=== PATIENT | female | born 1950 | race Caucasian/White ===

== ENCOUNTER 2016-11-29 02:48 | Emergency (ER) | payer MEDICARE, BC ==
[2016-11-29 03:07] VITALS: BP 148/82
--- NOTE | 2016-11-29 03:41 | EDM.PDOC ---
ED HPI GENERAL MEDICAL PROBLEM - General Chief Complaint: Lower Extremity Injury/Pain Stated Complaint: FALL LEFT HIP PAIN AND RIGHT KNEE Time Seen by Provider: 11/29/16 03:33 Source of Information: Reports: Patient History Limitations: Reports: No Limitations - History of Present Illness INITIAL COMMENTS - FREE TEXT/NARRATIVE: This patient is here in the hospital with her who is a hospitalist patient. This lady fell in the hospital lobby 2 days ago. She has a left hip it's been replaced x2. Since falling she does experience some minor pain in the abductor muscles of the left eye but says her hip really doesn't hurt. She' s had some minor discomfort in the right knee. She's been able to walk without difficulties but someone in the hospital told her she probably should get it checked out since it happened on hospital property. Normally she walks with a cane which she has with her today Right Knee Pain Score (Numeric/FACES): 4 - Related Data Allergies Allergy/AdvReac Type Severity Reaction Status Date / Time paroxetine HCl [From Paxil] Allergy Unknown Other Verified 11/29/16 03:04 sertraline HCl [From Zoloft] Allergy Unknown Hives Verified 11/29/16 03:04 adhesive Allergy Rash Verified 11/29/16 03:04 hydromorphone HCl Allergy Itching Verified 11/29/16 03:04 [From Dilaudid] nickel Allergy Rash Verified 11/29/16 03:04 polyethylene glycol 400 Allergy Redness Verified 11/29/16 03:04 [From Systane] propylene glycol Allergy Redness Verified 11/29/16 03:04 [From Systane] codeine AdvReac Unknown Hallucinati Verified 11/29/16 03:04 ons Home Meds: Home Meds Cetirizine [ZyrTEC] 10 mg PO DAILY 03/25/15 [History] Cholecalciferol (Vitamin D3) [Vitamin D3] 2,000 units PO DAILY 03/25/15 [History ] Gabapentin [Neurontin] 600 mg PO BEDTIME 03/25/15 [History] Ibuprofen 400 - 600 mg PO ASDIRECTED PRN 03/25/15 [History] Cyclobenzaprine [Flexeril] 10 mg PO BEDTIME 11/29/16 [History] DULoxetine [Cymbalta] 1 tab PO DAILY 11/29/16 [History] Ergocalciferol (Vitamin D2) [Vitamin D2] 1 tab PO ASDIRECTED 11/29/16 [History] Montelukast [Singulair] 10 mg PO DAILY 11/29/16 [History] oxyCODONE [oxyCODONE] 10 mg PO ASDIRECTED 11/29/16 [History] Past Medical History HEENT History: Reports: Impaired Vision Cardiovascular History: Reports: Heart Murmur [employer] History: Reports: , Other (See Below) Other OB/BYN History: d&cs Hematologic History: Reports: Anemia - Infectious Disease History Infectious Disease History: Reports: Chicken Pox - Past Surgical History Female Surgical History: Reports: D&C, Salpingo-Oophorectomy Musculoskeletal Surgical History: Reports: Hip Replacement, Other (See Below) Other Musculoskeletal Surgeries/Procedures:: toes, thumb surgery Social & Family History - Tobacco Use Smoking Status *Q: Never Smoker Second Hand Smoke Exposure: No - Caffeine Use Caffeine Use: Reports: Coffee - Alcohol Use Days Per Week of Alcohol Use: 5 Number of Drinks Per Day: 2 Total Drinks Per Week: 10 - Recreational Drug Use Recreational Drug Use: No Review of Systems - Review of Systems Review Of Systems: ROS reveals no pertinent complaints other than HPI. Trauma Exam - Physical Exam Exam: See Below Exam Limited By: No Limitations General Appearance: Reports: Alert, No Apparent Distress, Obese Extremities: Other (The right knee has full range of motion and there is no tenderness no effusion swelling erythema or increased heat. Not able to see any evidence of an acute injury. The patient initially is sitting on the stretcher but when I asked her to she gets up without difficulty and is able to take a few steps across the ER using her cane. She bears weight and moves the left hip without any difficulty.) Course - Vital Signs Last Recorded V/S: Last Vital Signs Temp 36.6 C 11/29/16 02:57 Pulse 107 H 11/29/16 02:57 Resp 16 11/29/16 02:57 BP 148/82 H 11/29/16 02:57 Pulse Ox 96 11/29/16 02:57 - Re-Assessments/Exams Free Text/Narrative Re-Assessment/Exam: 11/29/16 06:53 Based on my exam and observation no x-rays are needed on this lady. She is satisfied with this and agrees that she just wanted to get it checked out Departure - Departure Time of Disposition: 03:33 Disposition: Home, Self-Care 01 Condition: good Clinical Impression: Fall - Discharge Information Instructions: Muscle Pain, Adult Referrals: Gabbi Duarte CNM [Primary Care Provider] - Forms: ED Department Discharge Additional Instructions: There doesn't appear to be any injury to the left hip so you may continue to walk on it as before. The right knee may have some chronic arthritis but doesn't appear to have a new injury so xrays are not needed. You may also continue walking on it. Contact your doctor for any more problems or return to the ER at any time if needed.
== END 2016-11-29 03:51 | disposition home or self-care (01) ==
LOC: JP.ED 02:48
DX: M25.561 Pain in right knee (principal); Z90.721 Acquired absence of ovaries, unilateral; Z96.649 Presence of unspecified artificial hip joint; Z98.890 Other specified postprocedural states; Z79.899 Other long term (current) drug therapy; Z88.5 Allergy status to narcotic agent; Z88.8 Allergy status to other drugs, medicaments and biological substances; W19.XXXA Unspecified fall, initial encounter
CPT/HCPCS: 99282; 99284

== ENCOUNTER 2019-09-20 08:37 | Inpatient (IN) | payer MEDICARE, BC ==
[~2019-09-20 08:37] MED LIST: Lactated Ringers 1,000 ML IV SCH; Midazolam 1 MG/ML 2 ML SDV ONE; Nozin Nasal Sanitizer NASBOTH SCH; Propofol 200 MG/20 ML SDV ONE; fentaNYL 100 MCG/2 ML SDV ONE
[2019-09-20] MEDS ORDERED: ceFAZolin 2 GM in Premix Bag 1 BAG IV ONE (09:30)
[2019-09-20] MEDS ORDERED: Povidone-Iodine 10% Soln 118.25 ML Bottle ONE (09:34)
[2019-09-20] MEDS: TRANEXAMIC ACID IV ONE ×2 (10:21→15:15)
[2019-09-20] MEDS: SODIUM CHLORIDE 0.9% IV ONE ×2 (10:21→15:15)
[2019-09-20] MEDS ORDERED: Midazolam 1 MG/ML 2 ML SDV ONE ×3 (11:38→13:01)
[2019-09-20] MEDS ORDERED: Propofol 200 MG/20 ML SDV ONE ×3 (11:39→13:08)
[2019-09-20] MEDS ORDERED: Bupivacaine 0.5% 50 ML MDV ONE (11:45)
[2019-09-20] MEDS ORDERED: SODIUM CHLORIDE 0.9% IV PRN (11:45)
[2019-09-20] MEDS ORDERED: TRANEXAMIC ACID IV PRN (11:45)
[2019-09-20] MEDS ORDERED: fentaNYL 100 MCG/2 ML SDV ONE ×2 (12:29→13:01)
[2019-09-20] MEDS ORDERED: Lactated Ringers 1,000 ML ONE (13:14)
[2019-09-20] MEDS ORDERED: Ondansetron 4 MG Tab.DIS PO PRN (13:38)
[2019-09-20] MEDS ORDERED: Acetaminophen/HYDROcodone 325-5 MG Tab PO PRN (13:38)
[2019-09-20] MEDS ORDERED: Magnesium Hydroxide 400 MG/5 ML Susp 30 ML Cup PO PRN (13:38)
[2019-09-20] MEDS ORDERED: Morphine 2 MG/ML Syringe IVPUSH PRN ×2 (13:38→18:18)
[2019-09-20] MEDS ORDERED: Acetaminophen 325 MG Tab PO PRN (13:38)
[2019-09-20] MEDS ORDERED: CARBOXYMETHYLCELLULOSE SODIUM EYEBOTH PRN (13:46)
[2019-09-20] MEDS ORDERED: Non-Formulary Medication 1 Each (Hydroxyzine Pamoate [Hydroxyzine Pamoate] 25 MG) PO PRN (13:46)
--- NOTE | 2019-09-20 14:20 | CR ---
Pelvis 1V or 2V CLINICAL HISTORY: Revision left hip prosthesis FINDINGS: Patient has a total left hip arthroplasty. There has been revision of the acetabular component. The the femoral component appears similar. Portable study is technically limited. Clinical correlation necessary IMPRESSION: Revision left hip arthroplasty. Components appear well seated
[2019-09-20] MEDS ORDERED: Hypromellose 0.3% Ophth Soln 15 ML Bottle EYEBOTH PRN (14:25)
[2019-09-20] MEDS ORDERED: hydrOXYzine HCl 25 MG Tab PO PRN (14:26)
[2019-09-20] MEDS: Acetaminophen/oxyCODONE 325-5 MG Tab PO PRN ×2 (16:59→20:59)
[2019-09-20] MEDS: ALPRAZolam 0.25 MG Tab PO PRN (17:27)
[2019-09-20] MEDS: ceFAZolin 1 GM in Premix Bag 1 BAG IV SCH (17:28)
[2019-09-20] MEDS: Sodium Chloride 0.9% 1,000 ML IV SCH (19:18)
[2019-09-20] MEDS: Ketorolac 30 MG/ML SDV IVPUSH SCH (20:09)
[2019-09-20] MEDS: Nozin Nasal Sanitizer NASBOTH SCH (20:12)
[2019-09-20] MEDS: Gabapentin 300 MG Cap PO SCH (20:15)
[2019-09-20] MEDS: Docusate Sodium 100 MG Cap PO SCH (20:15)
[2019-09-20] MEDS: Montelukast 10 MG Tab PO SCH (20:15)
[2019-09-20] MEDS: traZODone 50 MG Tab PO SCH (20:15)
[2019-09-20] MEDS ORDERED: Non-Formulary Medication 1 Each (Trazodone [Trazodone] 50 MG) PO SCH (21:00)
[2019-09-21] MEDS: Ketorolac 30 MG/ML SDV IVPUSH SCH ×3 (01:48→14:07)
[2019-09-21] MEDS: Acetaminophen/oxyCODONE 325-5 MG Tab PO PRN ×5 (01:49→20:40)
[2019-09-21] MEDS: ceFAZolin 1 GM in Premix Bag 1 BAG IV SCH ×2 (01:57→10:51)
[2019-09-21] MEDS: Sodium Chloride 0.9% 1,000 ML IV SCH (03:23)
[2019-09-21] MEDS: Gabapentin 100 MG Cap PO SCH ×2 (08:00→14:06)
[2019-09-21] MEDS: DULoxetine 20 MG Cap PO SCH (08:01)
[2019-09-21] MEDS: Docusate Sodium 100 MG Cap PO SCH ×2 (08:01→20:42)
[2019-09-21] MEDS: Nozin Nasal Sanitizer NASBOTH SCH ×2 (08:01→20:42)
[2019-09-21] MEDS: Enoxaparin 30 MG/0.3 ML Syringe SUBCUT SCH (08:02)
[2019-09-21] MEDS: Fluticasone Propionate Nasal Spray 16 GM Bottle NASBOTH SCH (08:02)
[2019-09-21] MEDS: ALPRAZolam 0.25 MG Tab PO PRN ×2 (08:15→21:04)
[2019-09-21] MEDS ORDERED: Montelukast 10 MG Tab PO SCH (09:00)
[2019-09-21] MEDS: Gabapentin 300 MG Cap PO SCH (20:42)
[2019-09-21] MEDS: Montelukast 10 MG Tab PO SCH (20:42)
[2019-09-21] MEDS: traZODone 50 MG Tab PO SCH (20:43)
[2019-09-22] MEDS: Acetaminophen/oxyCODONE 325-5 MG Tab PO PRN ×3 (00:46→14:15)
[2019-09-22] MEDS: Gabapentin 100 MG Cap PO SCH ×2 (08:13→13:54)
[2019-09-22] MEDS: Enoxaparin 30 MG/0.3 ML Syringe SUBCUT SCH (08:17)
[2019-09-22] MEDS: Nozin Nasal Sanitizer NASBOTH SCH (08:17)
[2019-09-22] MEDS: DULoxetine 20 MG Cap PO SCH (08:17)
[2019-09-22] MEDS: Fluticasone Propionate Nasal Spray 16 GM Bottle NASBOTH SCH (08:17)
[2019-09-22] MEDS: Docusate Sodium 100 MG Cap PO SCH (08:17)
[2019-09-22] MEDS: ALPRAZolam 0.25 MG Tab PO PRN (08:25)
--- NOTE | 2019-09-22 12:24 | PCM.SURGPN ---
- General Info Date of Service: 09/21/19 Date of Surgery/Procedure: 09/20/19 POD#: 1 Functional Status: Reports: Tolerating Diet, Ambulating - Review of Systems General: Reports: No Symptoms HEENT: Reports: No Symptoms Pulmonary: Reports: No Symptoms Cardiovascular: Reports: No Symptoms Gastrointestinal: Reports: No Symptoms Musculoskeletal: Reports: Leg Pain Skin: Reports: No Symptoms Neurological: Reports: No Symptoms Psychiatric: Reports: No Symptoms - Patient Data Vitals - Most Recent: Last Vital Signs Temp 36.5 C 09/22/19 08:00 Pulse 72 09/22/19 08:00 Resp 16 09/22/19 08:00 BP 116/60 09/22/19 08:00 Pulse Ox 97 09/22/19 08:00 Weight - Most Recent: 90.718 kg I&O - Last 24 Hours: Intake & Output 09/21/19 09/22/19 09/22/19 22:59 06:59 14:59 Intake Total 1100 500 Output Total 950 500 Balance 150 0 Matt Results Last 24 Hrs: Microbiology 09/20/19 12:16 Gram Stain - Final Hip, Left Wound Culture - Preliminary NO GROWTH AFTER 1 DAY Anaerobic Culture - Preliminary NO GROWTH AFTER 1 DAY Med Orders - Current: Current Medications Acetaminophen (Tylenol) 650 mg PO Q4H PRN PRN Reason: Pain/Fever Hydrocodone Bitart/Acetaminophen ([place] 325-5 Mg) 1 tab PO Q3H PRN PRN Reason: Pain Alprazolam (Xanax) 0.25 mg PO BID PRN PRN Reason: Anxiety Last Admin: 09/22/19 08:25 Dose: 0.25 mg Artificial Tears (Genteal Mild To Moderate Ophth Soln) 1 - 2 ml EYEBOTH QID PRN PRN Reason: DRY EYES Bandage/Support Products ( Nasal Museum Exhibit Designer) 1 applic NASBOTH BID [facility] Stop: 09/27/19 21:01 Last Admin: 09/22/19 08:17 Dose: 1 applic Docusate Sodium (Colace) 100 mg PO BID [facility] Last Admin: 09/22/19 08:17 Dose: 100 mg Duloxetine HCl (Cymbalta) 40 mg PO DAILY [facility] Last Admin: 09/22/19 08:17 Dose: 40 mg Enoxaparin Sodium (Lovenox) 30 mg SUBCUT DAILY [facility] Last Admin: 09/22/19 08:17 Dose: 30 mg Fluticasone Propionate (Flonase) 0 gm NASBOTH DAILY [facility] Last Admin: 09/22/19 08:17 Dose: 1 applic Gabapentin (Neurontin) 100 mg PO BID@0800,1400 [facility] Last Admin: 09/22/19 08:13 Dose: 100 mg Gabapentin (Neurontin) 600 mg PO BEDTIME [facility] Last Admin: 09/21/19 20:42 Dose: 600 mg Hydroxyzine HCl (Atarax) 25 mg PO Q3H PRN PRN Reason: ITCHING Magnesium Hydroxide (Milk Of Magnesia) 30 ml PO Q6H PRN PRN Reason: Stool Softener Montelukast Sodium (Singulair) 10 mg PO BEDTIME [facility] Last Admin: 09/21/19 20:42 Dose: 10 mg Morphine Sulfate (Morphine) 2 mg IVPUSH Q1H PRN PRN Reason: Breakthrough Pain Last Admin: 09/20/19 18:55 Dose: 2 mg Ondansetron HCl (Zofran Odt) 4 mg PO Q6H PRN PRN Reason: Nausea/Vomiting Oxycodone/Acetaminophen (Percocet 325-5 Mg) 0 tab PO Q4H PRN PRN Reason: Pain (severe 7-10) Last Admin: 09/22/19 08:11 Dose: 2 tab Trazodone HCl (Trazodone) 50 mg PO BEDTIME [facility] Last Admin: 09/21/19 20:43 Dose: 50 mg Discontinued Medications Bandage/Support Products ( Nasal Museum Exhibit Designer) 1 applic NASBOTH BID [facility] Last Admin: 09/20/19 09:44 Dose: 1 applic Bupivacaine HCl (Marcaine 0.5%) Confirm Administered Dose 50 ml .ROUTE .STK-MED ONE Stop: 09/20/19 11:46 Fentanyl (Sublimaze) Confirm Administered Dose 100 mcg .ROUTE .STK-MED ONE Stop: 09/20/19 08:02 Fentanyl (Sublimaze) Confirm Administered Dose 100 mcg .ROUTE .STK-MED ONE Stop: 09/20/19 12:30 Fentanyl (Sublimaze) Confirm Administered Dose 100 mcg .ROUTE .STK-MED ONE Stop: 09/20/19 13:02 Cefazolin Sodium/Dextrose 2 gm (/ Premix) 50 mls @ 100 mls/hr IV ONETIME ONE Stop: 09/20/19 09:59 Last Admin: 09/20/19 10:20 Dose: 100 mls/hr Lactated Ringer's (Ringers, Lactated) 1,000 mls @ 75 mls/hr IV ASDIRECTED [facility] Last Admin: 09/20/19 09:42 Dose: 75 mls/hr Tranexamic Acid 910 mg/ Sodium (Chloride) 59.1 mls @ 236.4 mls/hr IV ONETIME ONE Stop: 09/20/19 09:59 Last Admin: 09/20/19 15:15 Dose: Not Given Tranexamic Acid 910 mg/ Sodium (Chloride) 59.1 mls @ 236.4 mls/hr IV ASDIRECTED PRN PRN Reason: 2ND DOSE PER PROVIDER REQUEST Lactated Ringer's (Ringers, Lactated) Confirm Administered Dose 1,000 mls @ as directed .ROUTE .STK-MED ONE Stop: 09/20/19 13:15 Cefazolin Sodium/Dextrose 1 gm (/ Premix) 50 mls @ 100 mls/hr IV Q8H [facility] Stop: 09/21/19 10:29 Last Admin: 09/21/19 10:51 Dose: 100 mls/hr Sodium Chloride (Normal Saline) 1,000 mls @ 125 mls/hr IV ASDIRECTED [facility] Last Admin: 09/21/19 03:23 Dose: 125 mls/hr Ketorolac Tromethamine (Toradol) 15 mg IVPUSH Q6H [facility] Stop: 09/21/19 14:01 Last Admin: 09/21/19 14:07 Dose: 15 mg Midazolam HCl (Versed 1 Mg/Ml) Confirm Administered Dose 2 mg .ROUTE .STK-MED ONE Stop: 09/20/19 08:02 Midazolam HCl (Versed 1 Mg/Ml) Confirm Administered Dose 2 mg .ROUTE .STK-MED ONE Stop: 09/20/19 11:39 Midazolam HCl (Versed 1 Mg/Ml) Confirm Administered Dose 2 mg .ROUTE .STK-MED ONE Stop: 09/20/19 11:46 Midazolam HCl (Versed 1 Mg/Ml) Confirm Administered Dose 2 mg .ROUTE .STK-MED ONE Stop: 09/20/19 13:02 Morphine Sulfate (Morphine) 1 mg IVPUSH Q1H PRN PRN Reason: Breakthrough Pain Last Admin: 09/20/19 16:23 Dose: 1 mg Povidone Iodine (Betadine 10% Soln) Confirm Administered Dose 1 ml .ROUTE .STK- MED ONE Stop: 09/20/19 09:35 Last Admin: 09/20/19 11:57 Dose: 40 ml Propofol (Diprivan 20 Ml) Confirm Administered Dose 200 mg .ROUTE .STK-MED ONE Stop: 09/20/19 08:02 Propofol (Diprivan 20 Ml) Confirm Administered Dose 200 mg .ROUTE .STK-MED ONE Stop: 09/20/19 11:40 Propofol (Diprivan 20 Ml) Confirm Administered Dose 200 mg .ROUTE .STK-MED ONE Stop: 09/20/19 12:09 Propofol (Diprivan 20 Ml) Confirm Administered Dose 200 mg .ROUTE .STK-MED ONE Stop: 09/20/19 13:09 - Exam Wound/Incisions: Dressing Dry and Intact General: Alert, Oriented HEENT: Pupils Equal Neck: Supple Lungs: Clear to Auscultation, Normal Respiratory Effort Cardiovascular: Regular Rate, Regular Rhythm GI/Abdominal Exam: Normal Bowel Sounds, Soft, Non-Tender, No Distention Extremities: Other (minimal swelling) Skin: Warm, Dry Neurological: No New Focal Deficit Psy/Mental Status: Alert, Normal Affect, Normal Mood Sepsis Event Note - Evaluation Sepsis Screening Result: No Definite Risk - Focused Exam Vital Signs: Vital Signs Temp Pulse Resp BP Pulse Ox 09/22/19 08:00 36.5 C 72 16 116/60 97 09/22/19 04:32 36.6 C 92 18 97/45 L 96 09/22/19 00:40 37.4 C 95 18 109/50 L 95 Date Exam was Performed: 09/22/19 Time Exam was Performed: 12:18 - Problem List & Annotations (1) History of revision of total hip arthroplasty SNOMED Code(s): 735716081, 092801808 Code(s): Z96.649 - PRESENCE OF UNSPECIFIED ARTIFICIAL HIP JOINT Status: Acute Current Visit: Yes (2) Aseptic loosening of prosthetic hip SNOMED Code(s): 024126029 Code(s): T84.038A - MECHANICAL LOOSENING OF OTH INTERNAL PROSTHETIC JOINT, INIT; Z96.649 - PRESENCE OF UNSPECIFIED ARTIFICIAL HIP JOINT Status: Acute Current Visit: No Qualifiers: Encounter type: sequela Qualified Code(s): T84.038S - Mechanical loosening of other internal prosthetic joint, sequela; Z96.649 - Presence of unspecified artificial hip joint - Problem List Review Problem List Initiated/Reviewed/Updated: Yes - My Orders Last 24 Hours: Active Orders 24 hr Category Date Time Status Patient Status [ADT] Routine ADT 09/21/19 12:02 Active Ready for Discharge [RC] PER UNIT ROUTINE Care 09/22/19 12:17 Ordered Consult to Occupational Therapy [OT Evaluation and Cons 09/22/19 09:22 Active Treatment] [CONS] Routine Convert IV to Saline Lock [OM.PC] Routine Oth 09/21/19 12:33 Ordered Medication Orders Acetaminophen (Tylenol) 650 mg PO Q4H PRN PRN Reason: Pain/Fever Hydrocodone Bitart/Acetaminophen ([place] 325-5 Mg) 1 tab PO Q3H PRN PRN Reason: Pain Alprazolam (Xanax) 0.25 mg PO BID PRN PRN Reason: Anxiety Last Admin: 09/22/19 08:25 Dose: 0.25 mg Admin: 09/21/19 21:04 Dose: 0.25 mg Admin: 09/21/19 08:15 Dose: 0.25 mg Admin: 09/20/19 17:27 Dose: 0.25 mg Artificial Tears (Genteal Mild To Moderate Ophth Soln) 1 - 2 ml EYEBOTH QID PRN PRN Reason: DRY EYES Bandage/Support Products ( Nasal Museum Exhibit Designer) 1 applic NASBOTH BID [facility] Stop: 09/27/19 21:01 Last Admin: 09/22/19 08:17 Dose: 1 applic Admin: 09/21/19 20:42 Dose: 1 applic Admin: 09/21/19 08:01 Dose: 1 applic Admin: 09/20/19 20:12 Dose: 1 applic Docusate Sodium (Colace) 100 mg PO BID [facility] Last Admin: 09/22/19 08:17 Dose: 100 mg Admin: 09/21/19 20:42 Dose: 100 mg Admin: 09/21/19 08:01 Dose: 100 mg Admin: 09/20/19 20:15 Dose: 100 mg Duloxetine HCl (Cymbalta) 40 mg PO DAILY [facility] Last Admin: 09/22/19 08:17 Dose: 40 mg Admin: 09/21/19 08:01 Dose: 40 mg Enoxaparin Sodium (Lovenox) 30 mg SUBCUT DAILY [facility] Last Admin: 09/22/19 08:17 Dose: 30 mg Admin: 09/21/19 08:02 Dose: 30 mg Fluticasone Propionate (Flonase) 0 gm NASBOTH DAILY [facility] Last Admin: 09/22/19 08:17 Dose: 1 applic Admin: 09/21/19 08:02 Dose: Not Given Gabapentin (Neurontin) 100 mg PO BID@0800,1400 [facility] Last Admin: 09/22/19 08:13 Dose: 100 mg Admin: 09/21/19 14:06 Dose: 100 mg Admin: 09/21/19 08:00 Dose: 100 mg Gabapentin (Neurontin) 600 mg PO BEDTIME [facility] Last Admin: 09/21/19 20:42 Dose: 600 mg Admin: 09/20/19 20:15 Dose: 600 mg Hydroxyzine HCl (Atarax) 25 mg PO Q3H PRN PRN Reason: ITCHING Magnesium Hydroxide (Milk Of Magnesia) 30 ml PO Q6H PRN PRN Reason: Stool Softener Montelukast Sodium (Singulair) 10 mg PO BEDTIME [facility] Last Admin: 09/21/19 20:42 Dose: 10 mg Admin: 09/20/19 20:15 Dose: 10 mg Morphine Sulfate (Morphine) 2 mg IVPUSH Q1H PRN PRN Reason: Breakthrough Pain Last Admin: 09/20/19 18:55 Dose: 2 mg Ondansetron HCl (Zofran Odt) 4 mg PO Q6H PRN PRN Reason: Nausea/Vomiting Oxycodone/Acetaminophen (Percocet 325-5 Mg) 0 tab PO Q4H PRN PRN Reason: Pain (severe 7-10) Last Admin: 09/22/19 08:11 Dose: 2 tab Admin: 09/22/19 00:46 Dose: 2 tab Admin: 09/21/19 20:40 Dose: 2 tab Admin: 09/21/19 15:45 Dose: 1 tab Admin: 09/21/19 11:46 Dose: 1 tab Admin: 09/21/19 06:04 Dose: 2 tab Admin: 09/21/19 01:49 Dose: 2 tab Admin: 09/20/19 20:59 Dose: 2 tab Admin: 09/20/19 16:59 Dose: 2 tab Trazodone HCl (Trazodone) 50 mg PO BEDTIME [facility] Last Admin: 09/21/19 20:43 Dose: 50 mg Admin: 09/20/19 20:15 Dose: 50 mg - Assessment Assessment (Free Text/Narrative):: Some difficulty with pain immediately post op, slept poorly, no nausea, has been out of bed and did quite well - Plan Plan (Free Text/Narrative):: Continue PT, D/C [place], complete IV antibiotics and saline lock IV, meds adjusted last night, pain better controlled
--- NOTE | 2019-09-22 12:34 | PCM.DCSUM1 ---
Discharge Summary - Hospital Course Free Text/Narrative:: 68 year old female with history of left hip revision for malpositioned cup that has been having persistent hip pain. Work up and imaging consistent with aseptic loosening of the cup. Admitted for revision of acetabulum. Diagnosis: Stroke: No Modified Antoni Scale: No Symptoms at All Modified Lorane Scale Score: 0 - Discharge Data Discharge Date: 09/22/19 Discharge Disposition: Home, Self-Care 01 Condition: Good - Referral to Home Health Date of Face to Face Encounter: 09/22/19 Primary Care Physician: PCP None - Discharge Diagnosis/Problem(s) (1) History of revision of total hip arthroplasty SNOMED Code(s): 374017268, 651262169 ICD Code: Z96.649 - PRESENCE OF UNSPECIFIED ARTIFICIAL HIP JOINT Status: Acute Current Visit: Yes (2) Aseptic loosening of prosthetic hip SNOMED Code(s): 977661546 ICD Code: T84.038A - MECHANICAL LOOSENING OF OTH INTERNAL PROSTHETIC JOINT, INIT; Z96.649 - PRESENCE OF UNSPECIFIED ARTIFICIAL HIP JOINT Status: Acute Current Visit: No Qualifiers: Encounter type: sequela Qualified Code(s): T84.038S - Mechanical loosening of other internal prosthetic joint, sequela; Z96.649 - Presence of unspecified artificial hip joint - Patient Summary/Data Operative Procedure(s) Performed: Revision of left acetabular cup and exchange of femoral head Consults: Consultations 09/20/19 13:38 Consult to Case Management/Turbine Engineer [CONS] Routine Comment: Physician Instructions: Discharge placement post hip surgery Service(s) to be Consulted: Case Management PT Evaluation and Treatment [CONS] Routine Please Evaluate and Treat. PT Reason for Consult: Ambulation Discharge Disposition: Home w Home Health Special Instructions: posterior hip precautions, PWB This query below is only for informational purposes and is not editable. PT Evaluation and Treatment [CONS] Routine Please Evaluate and Treat. PT Reason for Consult: Post op Ortho Surgery Hip Pending Discharge: Yes, 2- -3 days Special Instructions: Schedule first outpatient P.T. appointment 3 - 5 days post discharge This query below is only for informational purposes and is not editable. 09/22/19 09:22 Consult to Occupational Therapy [OT Evaluation and Treatment] [CONS] Routine Please Evaluate and Treat. OT Reason for Consult: ADL's Pending Discharge: Yes Discharge Disposition: Home w Home Health Special Instructions: ADLs and adaptive devices This query below is only for informational purposes and is not editable. Admission Diagnosis/Problem: Mechanical complication of internal orthopedic device Hospital Course: Tolerated surgery very well, no complications, some difficulty with pain control initially but improved rapidly, was up with PT and able to achieve independence with walker, tolerating po pain meds, dressing changed POD# 2 and incision looked very good, continue partial weight bearing at home, follow up two weeks. - Patient Instructions Diet: Usual Diet as Tolerated Activity: Partial Weight Bearing Showering/Bathing: May Shower Wound/Incision Care: Keep Operative Site/Wound Site Clean and Dry Notify Provider of: Fever, Increased Pain, Swelling and Redness, Drainage, Nausea and/or Vomiting - Discharge Plan *PRESCRIPTION DRUG MONITORING PROGRAM REVIEWED*: No *COPY OF PRESCRIPTION DRUG MONITORING REPORT IN PATIENT MICHAEL: No Prescriptions/Med Rec: oxyCODONE HCl/Acetaminophen [Percocet 5-325 mg Tablet] 2 each PO Q6HR PRN #40 tablet PRN Reason: Pain Enoxaparin [Lovenox] 30 mg SQ DAILY 28 Days #28 syringe Home Medications: Home Meds Cholecalciferol (Vitamin D3) [Vitamin D3] 2,000 units PO DAILY 03/25/15 [History ] Gabapentin [Neurontin] 600 mg PO BEDTIME 03/25/15 [History] Ibuprofen 400 mg PO Q6H PRN 03/25/15 [History] DULoxetine [Cymbalta] 40 mg PO DAILY 11/29/16 [History] Montelukast [Singulair] 10 mg PO BEDTIME 11/29/16 [History] ALPRAZolam [Alprazolam] 0.25 mg PO BID PRN 08/16/19 [History] Acetaminophen [Tylenol] 650 mg PO Q4H PRN 08/16/19 [History] Aspirin [Halfprin] 81 mg PO DAILY 08/16/19 [History] Carboxymethylcellulose Sodium [Refresh Tears] 1 - 2 drop EYEBOTH QID PRN [History] Fluticasone Propionate [Flonase] 2 spray NASBOTH DAILY 08/16/19 [History] Gabapentin [Neurontin] 100 mg PO BID 08/16/19 [History] Multivitamin with Minerals [Multiple Vitamin] 1 tab PO DAILY 08/16/19 [History] hydrOXYzine pamoate [Hydroxyzine Pamoate] 25 mg PO Q3H PRN 08/16/19 [History] traZODone 50 mg PO BEDTIME 09/05/19 [History] Enoxaparin [Lovenox] 30 mg SQ DAILY 28 Days #28 syringe 09/22/19 [Rx] oxyCODONE HCl/Acetaminophen [Percocet 5-325 mg Tablet] 2 each PO Q6HR PRN #40 tablet 09/22/19 [Rx] Oxygen Therapy Mode: Room Air Referrals: Everette Cruz MD [Physician] - 10/05/19 11:00 am - Discharge Summary/Plan Comment DC Time >30 min.: No - General Info Functional Status: Reports: Pain Controlled, Tolerating Diet, Ambulating, Urinating - Review of Systems General: Reports: No Symptoms HEENT: Reports: No Symptoms Pulmonary: Reports: No Symptoms Cardiovascular: Reports: No Symptoms Gastrointestinal: Reports: No Symptoms Genitourinary: Reports: No Symptoms Musculoskeletal: Reports: Leg Pain Skin: Reports: No Symptoms Neurological: Reports: No Symptoms Psychiatric: Reports: No Symptoms - Patient Data Vitals - Most Recent: Last Vital Signs Temp 36.5 C 09/22/19 08:00 Pulse 72 09/22/19 08:00 Resp 16 09/22/19 08:00 BP 116/60 09/22/19 08:00 Pulse Ox 97 09/22/19 08:00 Weight - Most Recent: 90.718 kg I&O - Last 24 hours: Intake & Output 09/21/19 09/22/19 09/22/19 22:59 06:59 14:59 Intake Total 1100 500 Output Total 950 500 500 Balance 150 0 -500 VIKI Results - Last 24 hrs: Microbiology 09/20/19 12:16 Gram Stain - Final Hip, Left Wound Culture - Preliminary NO GROWTH AFTER 1 DAY Anaerobic Culture - Preliminary NO GROWTH AFTER 1 DAY Med Orders - Current: Current Medications Acetaminophen (Tylenol) 650 mg PO Q4H PRN PRN Reason: Pain/Fever Hydrocodone Bitart/Acetaminophen ([place] 325-5 Mg) 1 tab PO Q3H PRN PRN Reason: Pain Alprazolam (Xanax) 0.25 mg PO BID PRN PRN Reason: Anxiety Last Admin: 09/22/19 08:25 Dose: 0.25 mg Artificial Tears (Genteal Mild To Moderate Ophth Soln) 1 - 2 ml EYEBOTH QID PRN PRN Reason: DRY EYES Bandage/Support Products ( Nasal Supervisor [employer]) 1 applic NASBOTH BID [facility] Stop: 09/27/19 21:01 Last Admin: 09/22/19 08:17 Dose: 1 applic Docusate Sodium (Colace) 100 mg PO BID [facility] Last Admin: 09/22/19 08:17 Dose: 100 mg Duloxetine HCl (Cymbalta) 40 mg PO DAILY [facility] Last Admin: 09/22/19 08:17 Dose: 40 mg Enoxaparin Sodium (Lovenox) 30 mg SUBCUT DAILY [facility] Last Admin: 09/22/19 08:17 Dose: 30 mg Fluticasone Propionate (Flonase) 0 gm NASBOTH DAILY [facility] Last Admin: 09/22/19 08:17 Dose: 1 applic Gabapentin (Neurontin) 100 mg PO BID@0800,1400 [facility] Last Admin: 09/22/19 08:13 Dose: 100 mg Gabapentin (Neurontin) 600 mg PO BEDTIME [facility] Last Admin: 09/21/19 20:42 Dose: 600 mg Hydroxyzine HCl (Atarax) 25 mg PO Q3H PRN PRN Reason: ITCHING Magnesium Hydroxide (Milk Of Magnesia) 30 ml PO Q6H PRN PRN Reason: Stool Softener Montelukast Sodium (Singulair) 10 mg PO BEDTIME [facility] Last Admin: 09/21/19 20:42 Dose: 10 mg Morphine Sulfate (Morphine) 2 mg IVPUSH Q1H PRN PRN Reason: Breakthrough Pain Last Admin: 09/20/19 18:55 Dose: 2 mg Ondansetron HCl (Zofran Odt) 4 mg PO Q6H PRN PRN Reason: Nausea/Vomiting Oxycodone/Acetaminophen (Percocet 325-5 Mg) 0 tab PO Q4H PRN PRN Reason: Pain (severe 7-10) Last Admin: 09/22/19 08:11 Dose: 2 tab Trazodone HCl (Trazodone) 50 mg PO BEDTIME [facility] Last Admin: 09/21/19 20:43 Dose: 50 mg Discontinued Medications Bandage/Support Products ( Nasal [employer]visor [employer]) 1 applic NASBOTH BID [facility] Last Admin: 09/20/19 09:44 Dose: 1 applic Bupivacaine HCl (Marcaine 0.5%) Confirm Administered Dose 50 ml .ROUTE .STK-MED ONE Stop: 09/20/19 11:46 Fentanyl (Sublimaze) Confirm Administered Dose 100 mcg [facility] Stop: 09/20/19 08:02 Fentanyl (Sublimaze) Confirm Administered Dose 100 mcg .ROUTE .STK-MED ONE Stop: 09/20/19 12:30 Fentanyl (Sublimaze) Confirm Administered Dose 100 mcg .ROUTE .ST-MED ONE Stop: 09/20/19 13:02 Cefazolin Sodium/Dextrose 2 gm (/ Premix) 50 mls @ 100 mls/hr IV ONETIME ONE Stop: 09/20/19 09:59 Last Admin: 09/20/19 10:20 Dose: 100 mls/hr Lactated Ringer's (Ringers, Lactated) 1,000 mls @ 75 mls/hr IV ASDIRECTED [facility] Last Admin: 09/20/19 09:42 Dose: 75 mls/hr Tranexamic Acid 910 mg/ Sodium (Chloride) 59.1 mls @ 236.4 mls/hr IV ONETIME ONE Stop: 09/20/19 09:59 Last Admin: 09/20/19 15:15 Dose: Not Given Tranexamic Acid 910 mg/ Sodium (Chloride) 59.1 mls @ 236.4 mls/hr IV ASDIRECTED PRN PRN Reason: 2ND DOSE PER PROVIDER REQUEST Lactated Ringer's (Ringers, Lactated) Confirm Administered Dose 1,000 mls @ as directed .ROUTE .K-MED ONE Stop: 09/20/19 13:15 Cefazolin Sodium/Dextrose 1 gm (/ Premix) 50 mls @ 100 mls/hr IV Q8H [facility] Stop: 09/21/19 10:29 Last Admin: 09/21/19 10:51 Dose: 100 mls/hr Sodium Chloride (Normal Saline) 1,000 mls @ 125 mls/hr IV ASDIRECTED [facility] Last Admin: 09/21/19 03:23 Dose: 125 mls/hr Ketorolac Tromethamine (Toradol) 15 mg IVPUSH Q6H [facility] Stop: 09/21/19 14:01 Last Admin: 09/21/19 14:07 Dose: 15 mg Midazolam HCl (Versed 1 Mg/Ml) Confirm Administered Dose 2 mg .ROUTE .STK-MED ONE Stop: 09/20/19 08:02 Midazolam HCl (Versed 1 Mg/Ml) Confirm Administered Dose 2 mg .ROUTE .STK-MED ONE Stop: 09/20/19 11:39 Midazolam HCl (Versed 1 Mg/Ml) Confirm Administered Dose 2 mg .ROUTE .STK-MED ONE Stop: 09/20/19 11:46 Midazolam HCl (Versed 1 Mg/Ml) Confirm Administered Dose 2 mg .ROUTE .STK-MED ONE Stop: 09/20/19 13:02 Morphine Sulfate (Morphine) 1 mg IVPUSH Q1H PRN PRN Reason: Breakthrough Pain Last Admin: 09/20/19 16:23 Dose: 1 mg Povidone Iodine (Betadine 10% Soln) Confirm Administered Dose 1 ml .ROUTE .STK- MED ONE Stop: 09/20/19 09:35 Last Admin: 09/20/19 11:57 Dose: 40 ml Propofol (Diprivan 20 Ml) Confirm Administered Dose 200 mg .ROUTE .STK-MED ONE Stop: 09/20/19 08:02 Propofol (Diprivan 20 Ml) Confirm Administered Dose 200 mg .ROUTE .STK-MED ONE Stop: 09/20/19 11:40 Propofol (Diprivan 20 Ml) Confirm Administered Dose 200 mg .ROUTE .STK-MED ONE Stop: 09/20/19 12:09 Propofol (Diprivan 20 Ml) Confirm Administered Dose 200 mg .ROUTE .STK-MED ONE Stop: 09/20/19 13:09 - Exam General: Reports: Alert, Oriented HEENT: Reports: Pupils Equal, Pupils Reactive, EOMI, Mucous Membr. Moist/[place] Neck: Reports: Supple Lungs: Reports: Clear to Auscultation, Normal Respiratory Effort Cardiovascular: Reports: Regular Rate, Regular Rhythm GI/Abdominal Exam: Normal Bowel Sounds, Soft, Non-Tender, No Distention (Female) Exam: Deferred Rectal (Female) Exam: Deferred Back Exam: Reports: Normal Inspection Extremities: Limited Range of Motion Skin: Reports: Warm, Dry Wound/Incisions: Reports: Healing Well, No Drainage Neurological: Reports: No New Focal Deficit Psy/Mental Status: Reports: Alert, Normal Affect, Normal Mood
[2019-09-22 12:36] VITALS: BP 112/59; PULSE 82
--- NOTE | 2019-09-25 11:57 | OR ---
DATE OF PROCEDURE: 09/20/2019 SURGEON: Everette Cruz MD PREOPERATIVE DIAGNOSIS: Aseptic loosening, acetabular component, left total hip. POSTOPERATIVE DIAGNOSIS: Aseptic loosening, acetabular component, left total hip. PROCEDURE: Revision of acetabular component, left total hip, and exchange of femoral head. ANESTHESIA: Spinal with sedation. INDICATIONS: Lilly is a 68-year-old female with a history of previous revision of her left total hip acetabular component for malposition of the original component. She has had persistent pain in the left hip for 2 years. Exam, history, and imaging are consistent with failure of bony ingrowth to the acetabular component with aseptic loosening. She now presents for revision of the acetabular cup. Risks, benefits, potential complications of the procedure were discussed. DESCRIPTION OF PROCEDURE: After adequate anesthesia was obtained, the patient was placed in a lateral decubitus position and secured with the hip positioner. The left hip was then prepped and draped in a sterile fashion. Portion of the previous incision was utilized, carried down through the subcutaneous tissues and hemostasis obtained with electrocautery. Tensor fascia was split in line with its fibers. Fairly significant scarring was present between the tensor fascia and IT band and the underlying greater trochanter and abductors. A plane was developed and a Charnley retractor was placed. Short external rotators were taken off the greater trochanter with electrocautery. Dissection carried down through the hip capsule. Fluid appeared normal. Cultures were taken and sent for aerobic, anaerobic evaluation. Dissection carried out around the edge of the acetabular cup. This did overhang the edge of the acetabulum quite a bit, and there was soft tissue ingrowth into the trabecular metal. Once the acetabulum was sufficiently exposed, the hip was internally rotated and the dual mobility head was dislocated. Head Impactor was used to remove the femoral head. The trunnion of the femoral stem was then allowed to sit within the cup to avoid retractors on it and potential damage. Using combination of electrocautery and Driscoll elevator, the periphery of the cup was exposed. Osteotomes were then used to develop a separation between the cup and the metal liner. The liner was eventually removed. During the process of removing the metal liner, it was noted that there was significant motion between the cup and the acetabular bone with evidence of loosening. Once the liner was removed, the acetabular screws were removed without difficulty. These were somewhat loose as well. Attention was then turned to the cup itself. Using a Driscoll elevator, a plane was developed between the cup and the acetabular bone. This loosened fairly easily and traction was placed on the cup and the plane continued to be developed using the Driscoll elevator between the cup, the acetabulum, and surrounding soft tissues. Cup was then removed. Evaluation of the cuff revealed 2 very small areas of only a few of square millimeters of bone ingrowth on the cup. The remainder of the ingrowth was all soft tissue. Acetabulum was then evaluated. Very thin layer medially was noted but adequate bone was available anterior, superior, and posterior. Soft tissue was debrided using electrocautery, rongeur, and curette. Acetabulum was then sequentially reamed up to size 64. This resulted in bleeding bed of the bone without significant bone loss. Medial wall was extremely thin, but not completely penetrated. The decision was made not to place a restrictor. Acetabulum was thoroughly irrigated and all soft tissues confirmed to be removed. Reamings were then used as a bone graft and packed medially and into a slight defect that was present posteriorly. Position of the cup was confirmed using a trial with excellent bony contact medial, anterior, superior, and posteriorly. Trial was removed and a final 64 mm cup was then press-fit into position. Due to the size of the cup and her acetabulum, there was overhang laterally, but good contact was made. Additional fixation was obtained with 3 acetabular screws. A 4th screw was placed, but the head of the screw actually broke off during implantation. This broke off flush beneath the cup and the screw was left in place. Inside of the cup was cleared of any bone graft that protruded between the screw holes and an elevated liner was then placed, placing the elevation slightly more superior and lateral. This was tapped into position. Trial reduction was then made with a 0 neck length and a +4 neck length. The +4 neck length provided voodoo of limb length and good stability with flexion to 90 degrees, adduction to 20 degrees, and internal rotation to 40 degrees. Trial was removed. The trunnion of the stem was dried and a Oxinium 36 mm +4 neck length head was tapped into position. The hip was reduced and again taken through range of motion, found to be quite stable. It was then irrigated once again followed by a dilute Betadine irrigation. Tensor fascia and IT band were then closed in a running locking fashion with #2 Ethibond. Skin was closed with 2-0 Vicryl and a running 3-0 Monocryl. Steri-Strips were applied. Sterile dressing was then placed. The patient tolerated the procedure very well. There were no complications. She was taken from the operating room in stable condition. Everette Cruz MD /[id number]
== END 2019-09-22 15:45 | disposition home or self-care (01) | DRG 468 ==
LOC: JP.SDS 08:37 → JP.MS 13:40 → JP.SDS 09-21 10:38 → UNDOADMIN 09-21 10:38 → JP.MS 09-21 10:38 → UNDODISIN 09-22 15:45
PROVIDERS: ADMIT Specialist; ATTEND Specialist
PROC: 0SRE0JA Replacement of Left Hip Joint, Acetabular Surface with Synthetic Substitute, Uncemented, Open Approach (ICD-10-PCS; principal; 2019-09-20)
PROC: 0SPE0JZ Removal of Synthetic Substitute from Left Hip Joint, Acetabular Surface, Open Approach (ICD-10-PCS; 2019-09-20)
DX: T84.031A Mechanical loosening of internal left hip prosthetic joint, initial encounter (principal); Y83.8 Other surgical procedures as the cause of abnormal reaction of the patient, or of later complication, without mention of misadventure at the time of the procedure; Z96.642 Presence of left artificial hip joint; F41.9 Anxiety disorder, unspecified; F32.9 Major depressive disorder, single episode, unspecified; M79.7 Fibromyalgia; Z79.891 Long term (current) use of opiate analgesic; Z96.653 Presence of artificial knee joint, bilateral; Z79.899 Other long term (current) drug therapy; Z79.82 Long term (current) use of aspirin; Z88.5 Allergy status to narcotic agent; Z88.8 Allergy status to other drugs, medicaments and biological substances; Z98.1 Arthrodesis status
CPT/HCPCS: 36415; 72170; 72170-26; 80053; 85027; 86850; 86900; 86901; 87070; 87075; 87205; 97110-GP; 97116-GP; 97162-GP; 97530-GP; 97535-GP; A9270-GY; J0690; J1650; J1885; J2250; J2270; J2704; J3010; J3490; J7030; J7050; J7120

== ENCOUNTER 2020-01-04 08:51 | Emergency (ER) | payer MEDICARE, BC ==
[2020-01-04] MEDS ORDERED: fentaNYL 100 MCG/2 ML SDV IVPUSH ONE (08:55)
--- NOTE | 2020-01-04 09:33 | CR ---
Hip Min 2V or 3V Lt CLINICAL HISTORY: Left hip pain FINDINGS: Patient has a total left hip arthroplasty. There is superior subluxation of the femoral component. No fracture seen. Impression: Dislocated left hip arthroplasty
--- NOTE | 2020-01-04 10:05 | EDM.PDOC ---
ED HPI GENERAL MEDICAL PROBLEM - General Chief Complaint: Lower Extremity Injury/Pain Stated Complaint: MEDICAL VIA [facility]TH Time Seen by Provider: 01/04/20 09:00 Source of Information: Reports: Patient History Limitations: Reports: No Limitations - History of Present Illness INITIAL COMMENTS - FREE TEXT/NARRATIVE: This is a 69-year-old female presents with a dislocated left hip. She had a hip replacement done here in September. This was her third revision of the joint. She was in the shower today shaving her left leg which required to lifted up in the air and flex more than she typically does when she felt her hip dislocate. She was able to ambulate on the right foot back to her bed. She has pain in the left hip now. No diminished sensation. She does report some increased aches and pains in the hip starting yesterday. She did not fall or sustain any other trauma. left hip Pain Score (Numeric/FACES): 8 - Related Data Allergies Allergy/AdvReac Type Severity Reaction Status Date / Time paroxetine HCl [From Paxil] Allergy Unknown Other Verified 01/04/20 08:55 sertraline HCl [From Zoloft] Allergy Unknown Hives Verified 01/04/20 08:55 adhesive Allergy Rash Verified 01/04/20 08:55 fluoxetine Allergy Other Verified 01/04/20 08:55 Histamine H2 Inhibitors Allergy Other Verified 01/04/20 08:55 hydromorphone [From Dilaudid] Allergy Itching Verified 01/04/20 08:55 hydromorphone HCl Allergy Itching Verified 01/04/20 08:55 [From Dilaudid] nickel Allergy Rash Verified 01/04/20 08:55 polyethylene glycol 400 Allergy Redness Verified 01/04/20 08:55 [From Systane] propylene glycol Allergy Redness Verified 01/04/20 08:55 [From Systane] codeine AdvReac Unknown Hallucinati Verified 01/04/20 08:55 ons Home Meds: Home Meds Cholecalciferol (Vitamin D3) [Vitamin D3] 2,000 units PO DAILY 03/25/15 [History] Gabapentin [Neurontin] 600 mg PO BEDTIME 03/25/15 [History] Ibuprofen 400 mg PO Q6H PRN 03/25/15 [History] DULoxetine [Cymbalta] 120 mg PO DAILY 11/29/16 [History] Montelukast [Singulair] 10 mg PO BEDTIME 11/29/16 [History] ALPRAZolam [Alprazolam] 0.25 mg PO TID 08/16/19 [History] Acetaminophen [Tylenol] 650 mg PO Q4H PRN 08/16/19 [History] Aspirin [Halfprin] 81 mg PO DAILY 08/16/19 [History] Carboxymethylcellulose Sodium [Refresh Tears] 1 - 2 drop EYEBOTH QID PRN 08/16/19 [History] Fluticasone Propionate [Flonase] 2 spray NASBOTH DAILY PRN 08/16/19 [History] Gabapentin [Neurontin] 100 mg PO BID 08/16/19 [History] Multivitamin with Minerals [Multiple Vitamin] 1 tab PO DAILY 08/16/19 [History] traZODone 50 mg PO BEDTIME 09/05/19 [History] Docusate Sodium 2 tab PO BEDTIME PRN 10/26/19 [History] Vitamin B Complex 1 each PO DAILY 10/26/19 [History] oxyCODONE HCl/Acetaminophen [Percocet 5-325 mg Tablet] 1 each PO TID PRN 7 Days #21 tablet 12/19/19 [Rx] Past Medical History HEENT History: Reports: Impaired Vision Cardiovascular History: Reports: Heart Murmur Respiratory History: Reports: Other (See Below) Other Respiratory History: ENVIRONMENTAL ALLERGIES Gastrointestinal History: Reports: None Genitourinary History: Reports: Urinary Incontinence CAFE LEAD History: Reports: , Other (See Below) Other CAFE LEAD History: d&cs CERVICAL ABLATION Musculoskeletal History: Reports: Other (See Below) Other Musculoskeletal History: L hip pain, L knee pain, L foot pain, B shoulder pain Neurological History: Reports: None Psychiatric History: Reports: Anxiety, Depression Endocrine/Metabolic History: Reports: Obesity/BMI 30+ Hematologic History: Reports: Anemia Immunologic History: Reports: None Oncologic (Cancer) History: Reports: None Dermatologic History: Reports: None - Infectious Disease History Infectious Disease History: Reports: Chicken Pox, Shingles - Past Surgical History Head Surgeries/Procedures: Reports: None HEENT Surgical History: Reports: Cataract Surgery, Tonsillectomy GI Surgical History: Reports: Colonoscopy Female Surgical History: Reports: D&C, Salpingo-Oophorectomy, Tubal Ligation Neurological Surgical History: Reports: Lumbar Spine, Spinal Fusion Other Neurological Surgeries/Procedures: 01/2019 L4-5 decompression/fusion, Dr. Ventura, [facility] Musculoskeletal Surgical History: Reports: Hip Replacement, Knee Replacement, Other (See Below) Other Musculoskeletal Surgeries/Procedures:: [address] Dowd, [facility]. 04/2016 L ANTONINO revision/replacement, [place]. 04/27/2019 bilat TKA, Dr. Adair, [facility]. 09/20/2019 L ANTONINO revision, Dr. Cruz, [facility]. B hammertoe/bunionectomies with hardware removed on R. Thumb surgery Oncologic Surgical History: Reports: None Social & Family History - Family History Family Medical History: Noncontributory - Tobacco Use Smoking Status *Q: Never Smoker - Caffeine Use Caffeine Use: Reports: Coffee - Recreational Drug Use Recreational Drug Use: No Review of Systems - Review of Systems Review Of Systems: See Below Constitutional: Reports: No Symptoms Eyes: Reports: No Symptoms Ears: Reports: No Symptoms Nose: Reports: No Symptoms Mouth/Throat: Reports: No Symptoms Respiratory: Reports: No Symptoms Cardiovascular: Reports: No Symptoms GI/Abdominal: Reports: No Symptoms Genitourinary: Reports: No Symptoms Musculoskeletal: Reports: Joint Pain Skin: Reports: No Symptoms Neurological: Reports: No Symptoms Psychiatric: Reports: No Symptoms ED EXAM, GENERAL - Physical Exam Exam: See Below Exam Limited By: No Limitations General Appearance: Alert, No Apparent Distress Ears: Normal External Exam Nose: Normal Inspection Throat/Mouth: Normal Inspection Head: Atraumatic, Normocephalic Neck: Normal Inspection Respiratory/Chest: Lungs Clear Cardiovascular: Regular Rate, Rhythm GI/Abdominal: Soft, Non-Tender Extremities: Other (Left leg is shortened and rotated. Distal CSM is intact.) Psychiatric: Normal Affect, Normal Mood Skin Exam: Warm, Dry ED TRAUMA EXTREMITY PROCEDURES - Joint Reduction Left Hip Sedation: Conscious Sedation Pre-Procedure NV Status: Normal Post-Procedure NV Status: Normal Technique: Traction/Counter Traction Number of Attempts: 1 Post-Reduction Imaging: Completely Reduced Joint Reduction Complications: No Course - Vital Signs Last Recorded V/S: Last Vital Signs Temp 36.1 C 01/04/20 08:52 Pulse 80 01/04/20 08:52 Resp 20 01/04/20 08:52 BP 125/65 01/04/20 08:52 Pulse Ox 98 01/04/20 08:52 - Orders/Labs/Meds Orders: Active Orders 24 hr Category Date Time Status Hip Min 2V or 3V Lt [CR] Stat Exams 01/04/20 09:52 Taken Meds: Medications Discontinued Medications Generic Name Dose Route Start Last Admin Trade Name Domenica PRN Reason Stop Dose Admin Fentanyl 50 mcg 01/04/20 08:55 01/04/20 09:05 Sublimaze IVPUSH 01/04/20 08:56 50 mcg ONETIME ONE Administration Propofol Confirm 01/04/20 10:27 Diprivan 20 Ml Administered 01/04/20 10:28 Dose 200 mg .ROUTE .STK-MED ONE - Re-Assessments/Exams Free Text/Narrative Re-Assessment/Exam: 69-year-old presents with dislocation of a left prosthetic hip. She is neurovascular intact. X-ray confirms dislocation. We await anesthesia to provide sedation for reduction. 01/04/20 10:08 Free Text/Narrative Re-Assessment/Exam: Hip reduced under sedation by anesthesia Post reduction films obtained and sedation/pain improved. No restrictions per ortho Has follow up arranged. 01/04/20 10:50 Departure - Departure Time of Disposition: 10:51 Disposition: Home, Self-Care 01 Clinical Impression: Hip dislocation, left Qualifiers: Encounter type: initial encounter Qualified Code(s): S73.005A - Unspecified dislocation of left hip, initial encounter - Discharge Information Instructions: Hip Dislocation Referrals: PCP,None [Primary Care Provider] - Forms: ED Department Discharge Sepsis Event Note (ED) - Evaluation Sepsis Screening Result: No Definite Risk - Focused Exam Vital Signs: Vital Signs Temp Pulse Resp BP Pulse Ox 01/04/20 08:52 36.1 C 80 20 125/65 98 - My Orders Last 24 Hours: My Active Orders 01/04/20 09:52 Hip Min 2V or 3V Lt [CR] Stat - Assessment/Plan Last 24 Hours: My Active Orders 01/04/20 09:52 Hip Min 2V or 3V Lt [CR] Stat
[2020-01-04] MEDS ORDERED: Propofol 200 MG/20 ML SDV ONE (10:27)
[2020-01-04 11:34] VITALS: BP 157/77; PULSE 65
--- NOTE | 2020-01-04 11:36 | CR ---
Hip Min 2V or 3V Lt CLINICAL HISTORY: Status post reduction FINDINGS: Previously dislocation of left hip arthroplasty has been reduced. No fracture seen. IMPRESSION: Status post reduction left hip arthroplasty dislocation
== END 2020-01-04 11:38 | disposition home or self-care (01) ==
LOC: JP.ED 08:51
DX: T84.021A Dislocation of internal left hip prosthesis, initial encounter (principal); F41.9 Anxiety disorder, unspecified; F32.9 Major depressive disorder, single episode, unspecified; E66.9 Obesity, unspecified; Z68.38 Body mass index [BMI] 38.0-38.9, adult; Z88.8 Allergy status to other drugs, medicaments and biological substances; Z91.048 Other nonmedicinal substance allergy status; Z88.5 Allergy status to narcotic agent; X58.XXXA Exposure to other specified factors, initial encounter
CPT/HCPCS: 27252; 27265; 73502; 96374; 99283; 99284; J2704; J3010; 27250

== ENCOUNTER 2021-06-23 10:08 | Emergency (ER) | payer MEDICARE ==
[2021-06-23] MEDS ORDERED: Aspirin 81 MG Tab.Chew PO ONE (10:26)
--- NOTE | 2021-06-23 10:32 | EDM.PDOC ---
ED HPI GENERAL MEDICAL PROBLEM - General Chief Complaint: Chest Pain Stated Complaint: MEDICAL Time Seen by Provider: 06/23/21 10:27 Source of Information: Reports: Patient History Limitations: Reports: No Limitations - History of Present Illness INITIAL COMMENTS - FREE TEXT/NARRATIVE: pt arrived sob and feeling chest pressure. She did have an episode last th. when she was in [place] where she found herself on the floor. She lost control of her bladder and did not remember what had happened. She had 1 or 2 other episodes like that. She was scheduled for a stress test today. Onset: Today, Sudden Duration: Hour(s): Location: Reports: Chest, Generalized, Other (pt was very sob. ) Associated Symptoms: Reports: Shortness of Breath, Other (pt is having chest pressure. ) Chest Pain Score (Numeric/FACES): 5 - Related Data Allergies Allergy/AdvReac Type Severity Reaction Status Date / Time paroxetine HCl [From Paxil] Allergy Unknown Other Verified 06/23/21 10:17 sertraline HCl [From Zoloft] Allergy Unknown Hives Verified 06/23/21 10:17 adhesive Allergy Rash Verified 06/23/21 10:17 fluoxetine Allergy Other Verified 06/23/21 10:17 Histamine H2 Inhibitors Allergy Other Verified 06/23/21 10:17 hydromorphone [From Dilaudid] Allergy Itching Verified 06/23/21 10:17 hydromorphone HCl Allergy Itching Verified 06/23/21 10:17 [From Dilaudid] nickel Allergy Rash Verified 06/23/21 10:17 polyethylene glycol 400 Allergy Redness Verified 06/23/21 10:17 [From Systane] propylene glycol Allergy Redness Verified 06/23/21 10:17 [From Systane] codeine AdvReac Unknown Hallucinati Verified 06/23/21 10:17 ons Home Meds: Home Meds Cholecalciferol (Vitamin D3) [Vitamin D3] 2,000 units PO DAILY 03/25/15 [History] Gabapentin [Neurontin] 300 mg PO BEDTIME 03/25/15 [History] DULoxetine [Cymbalta] 120 mg PO DAILY 11/29/16 [History] Montelukast [Singulair] 10 mg PO BEDTIME 11/29/16 [History] ALPRAZolam [Alprazolam] 0.25 mg PO TID 08/16/19 [History] Acetaminophen [Tylenol] 650 mg PO Q4H PRN 08/16/19 [History] Aspirin [Halfprin] 81 mg PO DAILY 08/16/19 [History] Carboxymethylcellulose Sodium [Refresh Tears] 1 - 2 drop EYEBOTH QID PRN 08/16/19 [History] Fluticasone Propionate [Flonase] 2 spray NASBOTH DAILY PRN 08/16/19 [History] Gabapentin [Neurontin] 300 mg PO TID 08/16/19 [History] Multivitamin with Minerals [Multiple Vitamin] 1 tab PO DAILY 08/16/19 [History] traZODone 50 mg PO BEDTIME 09/05/19 [History] Vitamin B Complex 1 each PO DAILY 10/26/19 [History] Albuterol Sulfate [Albuterol Sulfate Hfa] 2 puff IH Q4H PRN 09/26/20 [History] sulfaSALAzine [sulfaSALAzine DR] 1,000 mg PO DAILY 09/26/20 [History] Cholecalciferol (Vitamin D3) [Vitamin D] 50,000 unit PO .WEEKLY 03/19/21 [History] Cyclobenzaprine [Flexeril] 10 mg PO TID PRN 03/19/21 [History] Docusate Sodium/Sennosides [Senokot-S] 2 tab PO BID 03/19/21 [History] oxyCODONE HCl [Roxicodone] 5 - 10 mg PO Q4H PRN 03/19/21 [History] sulfaSALAzine 1,000 mg PO .EVENING 03/19/21 [History] Past Medical History HEENT History: Reports: Impaired Vision Cardiovascular History: Reports: Heart Murmur Respiratory History: Reports: Other (See Below) Other Respiratory History: ENVIRONMENTAL ALLERGIES Gastrointestinal History: Reports: None Genitourinary History: Reports: Urinary Incontinence 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: , 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 (See Below) Other PRINTING TECHNICIAN History: d&cs CERVICAL ABLATION Musculoskeletal History: Reports: Other (See Below) Other Musculoskeletal History: L hip pain, L knee pain, L foot pain, B shoulder pain Neurological History: Reports: None Psychiatric History: Reports: Anxiety, Depression Endocrine/Metabolic History: Reports: Obesity/BMI 30+ Hematologic History: Reports: Anemia Immunologic History: Reports: None Oncologic (Cancer) History: Reports: None Dermatologic History: Reports: None - Infectious Disease History Infectious Disease History: Reports: Chicken Pox, Shingles - Past Surgical History Head Surgeries/Procedures: Reports: None HEENT Surgical History: Reports: Cataract Surgery, Tonsillectomy GI Surgical History: Reports: Colonoscopy Female Surgical History: Reports: D&C, Salpingo-Oophorectomy, Tubal Ligation Neurological Surgical History: Reports: Lumbar Spine, Spinal Fusion Other Neurological Surgeries/Procedures: 01/2019 L4-5 decompression/fusion, Dr. Ventura, [facility] Musculoskeletal Surgical History: Reports: Hip Replacement, Knee Replacement, Other (See Below) Other Musculoskeletal Surgeries/Procedures:: [address] Dowd, [facility]. 04/2016 L ANTONINO revision/replacement, [place]. 04/27/2019 bilat TKA, Dr. Adair, [facility]. 09/20/2019 L ANTONINO revision, Dr. Cruz, [facility] B hammertoe/bunionectomies with hardware removed on R. Thumb surgery Social & Family History - Family History Family Medical History: No Pertinent Family History - Tobacco Use Tobacco Use Status *Q: Never Tobacco User - Caffeine Use Caffeine Use: Reports: Coffee - Recreational Drug Use Recreational Drug Use: No ED ROS GENERAL - Review of Systems Review Of Systems: See Below Constitutional: Reports: No Symptoms HEENT: Reports: No Symptoms Respiratory: Reports: Shortness of Breath, Other ( chest pressure) Cardiovascular: Reports: Chest Pain, Other (pressure.) Endocrine: Reports: No Symptoms GI/Abdominal: Reports: No Symptoms : Reports: No Symptoms Musculoskeletal: Reports: No Symptoms Skin: Reports: No Symptoms Neurological: Reports: Dizziness, Other (pt felt like she could pass out. ) Psychiatric: Reports: Anxiety ED EXAM, GENERAL - Physical Exam Exam: See Below Free Text/Narrative:: P ARRIVED AFTER AN EPISODE OF MARKED SOB. sHE HAD SOME CHEST TIGHTNESS BUT NOT TRUE CHEST PAIN. hER O2 SATS WERE GREAT. Exam Limited By: No Limitations General Appearance: Alert, Anxious, Mild Distress, Other (PUPILSARE EQUAL AND REACTIVE. ) Ears: Normal TMs Nose: Normal Inspection Throat/Mouth: Normal Inspection Head: Atraumatic Neck: Normal Inspection Respiratory/Chest: No Respiratory Distress Cardiovascular: Regular Rate, Rhythm GI/Abdominal: Soft, Non-Tender (Female) Exam: Deferred Rectal (Female) Exam: Deferred Back Exam: Normal Inspection Extremities: Normal Inspection Neurological: Alert, Oriented, Normal Cognition Psychiatric: Anxious Course - Vital Signs Last Recorded V/S: Last Vital Signs Temp 36.4 C 06/23/21 10:14 Pulse 81 06/23/21 10:41 Resp 13 06/23/21 10:41 BP 133/106 H 06/23/21 10:41 Pulse Ox 97 06/23/21 10:41 - Orders/Labs/Meds Labs: Laboratory Tests 06/23/21 06/23/21 06/23/21 Range/Units 10:24 10:30 10:30 WBC 5.7 (4.5-11.0) K/uL RBC 3.93 (3.30-5.50) M/uL Hgb 12.2 (12.0-15.0) g/dL Hct 37.7 (36.0-48.0) % MCV 96 (80-98) fL MCH 31 (27-31) pg MCHC 32 (32-36) % Plt Count 378 (150-400) K/uL Neut % (Auto) 62.9 (36-66) % Lymph % (Auto) 23.3 L (24-44) % Mellette % (Auto) 10.2 H (2-6) % Eos % (Auto) 2.5 (2-4) % Baso % (Auto) 1.1 H (0-1) % Puncture Site Lt radial ABG pH 7.688 H* (7.350-7.450) ABG pCO2 16.0 L* (35.0-42.0) mmHg ABG pO2 120.0 H (75.0-100.0) mmHg ABG HCO3 19.7 L (22.0-26.0) mmol/L ABG Total CO2 16.8 L (21.0-25.0) mmol/L ABG O2 Saturation 98.4 H (95.0-98.0) % ABG O2 Content 16.9 (15.0-23.0) %vol ABG Base Excess 1.3 mm/L ABG Hemoglobin 12.6 (12.0-16.0) g/dL ABG Oxyhemoglobin 94.6 % ABG Carboxyhemoglobin 1.5 (0.0-1.6) % ABG Methemoglobin 2.4 % Rafal Test Passed O2 Delivery Device Room air Sodium 138 L (140-148) mmol/L Potassium 4.4 (3.6-5.2) mmol/L Chloride 101 (100-108) mmol/L Carbon Dioxide 23 (21-32) mmol/L Anion Gap 18.4 H (5.0-14.0) mmol/L BUN 15 (7-18) mg/dL Creatinine 1.1 H (0.6-1.0) mg/dL Est Cr Clr Drug Dosing 36.42 mL/min Estimated GFR (MDRD) 49 L (>60) Glucose 85 (74-106) mg/dL Calcium 9.3 (8.5-10.1) mg/dL Total Bilirubin 0.6 (0.2-1.0) mg/dL AST 18 (15-37) U/L ALT 24 (12-78) U/L Alkaline Phosphatase 102 (46-116) U/L Troponin I High Sens (<=60.3) pg/mL Total Protein 7.2 (6.4-8.2) g/dL Albumin 4.0 (3.4-5.0) g/dL Globulin 3.2 (2.3-3.5) g/dL Albumin/Globulin Ratio 1.3 (1.2-2.2) 06/23/ Range/Units 10:30 WBC (4.5-11.0) K/uL RBC (3.30-5.50) M/uL Hgb (12.0-15.0) g/dL Hct (36.0-48.0) % MCV (80-98) fL MCH (27-31) pg MCHC (32-36) % Plt Count (150-400) K/uL Neut % (Auto) (36-66) % Lymph % (Auto) (24-44) % Mellette % (Auto) (2-6) % Eos % (Auto) (2-4) % Baso % (Auto) (0-1) % Puncture Site ABG pH (7.350-7.450) ABG pCO2 (35.0-42.0) mmHg ABG pO2 (75.0-100.0) mmHg ABG HCO3 (22.0-26.0) mmol/L ABG Total CO2 (21.0-25.0) mmol/L ABG O2 Saturation (95.0-98.0) % ABG O2 Content (15.0-23.0) %vol ABG Base Excess mm/L ABG Hemoglobin (12.0-16.0) g/dL ABG Oxyhemoglobin % ABG Carboxyhemoglobin (0.0-1.6) % ABG Methemoglobin % Rafal Test O2 Delivery Device Sodium (140-148) mmol/L Potassium (3.6-5.2) mmol/L Chloride (100-108) mmol/L Carbon Dioxide (21-32) mmol/L Anion Gap (5.0-14.0) mmol/L BUN (7-18) mg/dL Creatinine (0.6-1.0) mg/dL Est Cr Clr Drug Dosing mL/min Estimated GFR (MDRD) (>60) Glucose (74-106) mg/dL Calcium (8.5-10.1) mg/dL Total Bilirubin (0.2-1.0) mg/dL AST (15-37) U/L ALT (12-78) U/L Alkaline Phosphatase (46-116) U/L Troponin I High Sens 4.8 (<=60.3) pg/mL Total Protein (6.4-8.2) g/dL Albumin (3.4-5.0) g/dL Globulin (2.3-3.5) g/dL Albumin/Globulin Ratio (1.2-2.2) Meds: Medications Discontinued Medications Generic Name Dose Route Start Last Admin Trade Name Freq PRN Reason Stop Dose Admin Alprazolam 0.25 mg 06/23/21 12:03 06/23/21 12:46 Alprazolam 0.25 Mg Tab PO 06/23/21 12:04 0.25 mg ONETIME ONE Administration Aspirin 324 mg 06/23/21 10:26 06/23/21 10:41 Aspirin 81 Mg Tab.Chew PO 06/23/21 10:27 324 mg ONETIME ONE Administration - Re-Assessments/Exams Free Text/Narrative Re-Assessment/Exam: 06/28/21 07:54 PT REMAINED STABLE. hER BLOOD GASES CLEARLY SHOWED HYPERVENTILATION WITH A HIGH PH AND HER CO2 WAS 16. A CAT SCAN OF THE HEAD WAS OBTAINED WHICH WAS NEG. HWER TROP AND OTHER LABS LOOKED GOOD. Departure - Departure Time of Disposition: 12:04 Disposition: Home, Self-Care 01 Condition: Fair Clinical Impression: SOB (shortness of breath), Hyperventilation, Black-out (not amnesia) Instructions: Shortness of Breath, Adult, [id number], Hyperventilation, Nonspecific Chest Pain, Adult, [id number] Referrals: PCP,None [Primary Care Provider] - Forms: ED Department Discharge Care Plan Goals: follow up with Dr Estrada, uzair vargas, set up pt with a event recorder. continue xanax Sepsis Event Note (ED) - Evaluation Sepsis Screening Result: No Definite Risk
[2021-06-23 10:41] VITALS: BP 133/106; PULSE 81
--- NOTE | 2021-06-23 11:42 | CT ---
Head wo Cont CLINICAL HISTORY: Episode of memory loss COMPARISON: None TECHNIQUE: Transverse scans were obtained from the base of the skull through the vertex without IV contrast on a multislice, multidetector CT scanner. Auto dosage reduction and iterative reconstruction techniques employed. FINDINGS: No focal abnormal parenchymal density is identified. There is no mass effect, hemorrhage, or extraaxial collection. The basal cisterns and sulci over the convexities are normal. The ventricles are normal. IMPRESSION: No acute intracranial process identified
[2021-06-23] MEDS ORDERED: ALPRAZolam 0.25 MG Tab PO ONE (12:03)
== END 2021-06-23 12:58 | disposition home or self-care (01) ==
LOC: JP.ED 10:08
DX: R06.02 Shortness of breath (principal); R55 Syncope and collapse; R06.4 Hyperventilation; E66.9 Obesity, unspecified; Z68.37 Body mass index [BMI] 37.0-37.9, adult; Z91.048 Other nonmedicinal substance allergy status; Z88.8 Allergy status to other drugs, medicaments and biological substances; Z88.5 Allergy status to narcotic agent; Z79.82 Long term (current) use of aspirin; Z79.899 Other long term (current) drug therapy
CPT/HCPCS: 36415; 36600; 70450; 70450-26; 80053; 82803; 84484; 85025; 93005; 99285-25; A9270-GY

== ENCOUNTER 2021-06-28 18:24 | Emergency (ER) | payer MEDICARE ==
--- NOTE | 2021-06-28 19:12 | EDM.PDOC ---
ED HPI GENERAL MEDICAL PROBLEM - General Chief Complaint: Chest Pain Stated Complaint: SOB, LIGHTHEADED, NAUSEA Time Seen by Provider: 06/28/21 18:47 Source of Information: Reports: Patient, Old Records History Limitations: Reports: No Limitations - History of Present Illness INITIAL COMMENTS - FREE TEXT/NARRATIVE: Lilly is a 70-year-old female presenting to the ED for evaluation of multiple complaints including chest pressure radiating up into the neck, shortness of breath, nausea, intermittent diaphoresis, fatigue, and chills that have been occurring on and off for about the last week. It appears to be more frequent today prompting her to come in for reevaluation. Patient is set up for a exercise stress test on Wednesday to evaluate for coronary artery disease. He was seen and evaluated earlier this week in the ED. epigastric pain Pain Score (Numeric/FACES): 5 - Related Data Allergies Allergy/AdvReac Type Severity Reaction Status Date / Time paroxetine HCl [From Paxil] Allergy Unknown Other Verified 06/28/21 19:32 sertraline HCl [From Zoloft] Allergy Unknown Hives Verified 06/28/21 19:32 adhesive Allergy Rash Verified 06/28/21 19:32 fluoxetine Allergy Other Verified 06/28/21 19:32 Histamine H2 Inhibitors Allergy Other Verified 06/28/21 19:32 hydromorphone [From Dilaudid] Allergy Itching Verified 06/28/21 19:32 hydromorphone HCl Allergy Itching Verified 06/28/21 19:32 [From Dilaudid] nickel Allergy Rash Verified 06/28/21 19:32 polyethylene glycol 400 Allergy Redness Verified 06/28/21 19:32 [From Systane] propylene glycol Allergy Redness Verified 06/28/21 19:32 [From Systane] codeine AdvReac Unknown Hallucinati Verified 06/28/21 19:32 ons Home Meds: Home Meds Cholecalciferol (Vitamin D3) [Vitamin D3] 2,000 units PO DAILY 03/25/15 [History] Gabapentin [Neurontin] 300 mg PO BEDTIME 03/25/15 [History] DULoxetine [Cymbalta] 120 mg PO DAILY 11/29/16 [History] Montelukast [Singulair] 10 mg PO BEDTIME 11/29/16 [History] ALPRAZolam [Alprazolam] 0.25 mg PO DAILY 08/16/19 [History] Acetaminophen [Tylenol] 650 mg PO Q4H PRN 08/16/19 [History] Aspirin [Halfprin] 81 mg PO DAILY 08/16/19 [History] Carboxymethylcellulose Sodium [Refresh Tears] 1 - 2 drop EYEBOTH QID PRN 08/16/19 [History] Fluticasone Propionate [Flonase] 2 spray NASBOTH DAILY PRN 08/16/19 [History] Gabapentin [Neurontin] 100 mg PO TID 08/16/19 [History] Multivitamin with Minerals [Multiple Vitamin] 1 tab PO DAILY 08/16/19 [History] traZODone 50 mg PO BEDTIME 09/05/19 [History] Albuterol Sulfate [Albuterol Sulfate Hfa] 2 puff IH Q4H PRN 09/26/20 [History] sulfaSALAzine [sulfaSALAzine DR] 1,000 mg PO BID 09/26/20 [History] Cholecalciferol (Vitamin D3) [Vitamin D] 50,000 unit PO .WEEKLY 03/19/21 [History] Docusate Sodium/Sennosides [Senokot-S] 1 tab PO BEDTIME 03/19/21 [History] Past Medical History HEENT History: Reports: Impaired Vision Cardiovascular History: Reports: Heart Murmur Respiratory History: Reports: Other (See Below) Other Respiratory History: ENVIRONMENTAL ALLERGIES Gastrointestinal History: Reports: None Genitourinary History: Reports: Urinary Incontinence [employer]IV[employer] DEF[employer] DIRECTOR History: Reports: , Other (See Below) 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: d&cs CERVICAL ABLATION Musculoskeletal History: Reports: Other (See Below) Other Musculoskeletal History: L hip pain, L knee pain, L foot pain, B shoulder pain Neurological History: Reports: None Psychiatric History: Reports: Anxiety, Depression Endocrine/Metabolic History: Reports: Obesity/BMI 30+ Hematologic History: Reports: Anemia Immunologic History: Reports: None Oncologic (Cancer) History: Reports: None Dermatologic History: Reports: None - Infectious Disease History Infectious Disease History: Reports: Chicken Pox, Shingles - Past Surgical History Head Surgeries/Procedures: Reports: None HEENT Surgical History: Reports: Cataract Surgery, Tonsillectomy GI Surgical History: Reports: Colonoscopy Female Surgical History: Reports: D&C, Salpingo-Oophorectomy, Tubal Ligation Neurological Surgical History: Reports: Lumbar Spine, Spinal Fusion Other Neurological Surgeries/Procedures: 01/2019 L4-5 decompression/fusion, Dr. Ventura, [facility] Musculoskeletal Surgical History: Reports: Hip Replacement, Knee Replacement, Other (See Below) Other Musculoskeletal Surgeries/Procedures:: [address] Dowd, [facility]. 04/2016 L ANTONINO revision/replacement, [place]. 04/27/2019 bilat TKA, Dr. Adair, [facility]. 09/20/2019 L ANTONINO revision, Dr. Cruz, [facility]. B hammertoe/bunionectomies with hardware removed on R. Thumb surgery Social & Family History - Family History Family Medical History: No Pertinent Family History - Caffeine Use Caffeine Use: Reports: Coffee ED ROS GENERAL - Review of Systems Review Of Systems: See Below Constitutional: Reports: Chills, Malaise, Weakness, Fatigue, Diaphoresis HEENT: Reports: No Symptoms Respiratory: Reports: Shortness of Breath Cardiovascular: Reports: Chest Pain (Chest pressure radiating up to the neck) Endocrine: Reports: Fatigue GI/Abdominal: Reports: Nausea. Denies: Abdominal Pain, Constipation, Diarrhea, Vomiting : Reports: No Symptoms Musculoskeletal: Reports: Muscle Pain (Body aches) Skin: Reports: No Symptoms Neurological: Reports: No Symptoms Psychiatric: Reports: Anxiety Hematologic/Lymphatic: Reports: No Symptoms Immunologic: Reports: No Symptoms ED EXAM, GENERAL - Physical Exam Exam: See Below Exam Limited By: No Limitations General Appearance: Alert, Anxious, Mild Distress Eye Exam: Bilateral Eye: EOMI, PERRL Nose: Normal Inspection, Normal Mucosa Throat/Mouth: Normal Voice, No Airway Compromise, Other (Dry mucous membranes) Head: Atraumatic, Normocephalic Neck: Normal Inspection, Supple, Non-Tender. No: Carotid Bruit, Lymphadenopathy (R), Lymphadenopathy (L) Respiratory/Chest: No Respiratory Distress, Lungs Clear, Normal Breath Sounds. No: Crackles, Rales, Rhonchi, Wheezing Cardiovascular: Normal Peripheral Pulses, Regular Rate, Rhythm, Systolic Murmur (3/6 systolic ejection murmur heard at the right sternal border) Peripheral Pulses: 2+: Radial (L), Radial (R) GI/Abdominal: Normal Bowel Sounds, Soft, Non-Tender Back Exam: Normal Inspection Extremities: Normal Inspection, Normal Range of Motion, No Pedal Edema Neurological: Alert, Oriented, Normal Cognition, No Motor/Sensory Deficits Psychiatric: Normal Affect, Anxious Skin Exam: Warm, Dry, Normal Color. No: Diaphoretic, Pallor #1 Interpretation EKG Date: 06/28/21 Time: 18:59 Rhythm: NSR Rate (Beats/Min): 76 [place]: Normal P-Wave: Present QRS: Normal ST-T: Normal QT: Normal Comparison: No Change (EKG is unchanged from previous on 06/23/2021.) Course - Vital Signs Last Recorded V/S: Last Vital Signs Temp 37.2 C 06/28/21 19:09 Pulse 75 06/28/21 19:09 Resp 10 L 06/28/21 19:09 BP 148/80 H 06/28/21 19:09 Pulse Ox 95 06/28/21 19:09 - Orders/Labs/Meds Orders: Active Orders 24 hr Category Date Time Status Isolation [COMM] Stat Oth 06/28/21 19:06 Ordered EKG 12 Lead [EK] Routine Ther 06/28/21 18:48 Ordered Labs: Laboratory Tests 06/28/21 06/28/21 06/28/21 Range/Units 19:09 19:20 19:20 WBC 5.5 (4.5-11.0) K/uL RBC 3.84 (3.30-5.50) M/uL Hgb 11.9 L (12.0-15.0) g/dL Hct 36.4 (36.0-48.0) % MCV 95 (80-98) fL MCH 31 (27-31) pg MCHC 33 (32-36) % Plt Count 384 (150-400) K/uL Neut % (Auto) 49.6 (36-66) % Lymph % (Auto) 34.4 (24-44) % [place] % (Auto) 12.9 H (2-6) % Eos % (Auto) 2.2 (2-4) % Baso % (Auto) 0.9 (0-1) % PT 9.5 (9.2-10.6) sec INR 0.9 APTT 34.1 H (21.4-31.8) sec Sodium (140-148) mmol/L Potassium (3.6-5.2) mmol/L Chloride (100-108) mmol/L Carbon Dioxide (21-32) mmol/L Anion Gap (5.0-14.0) mmol/L BUN (7-18) mg/dL Creatinine (0.6-1.0) mg/dL Est Cr Clr Drug Dosing mL/min Estimated GFR (MDRD) (>60) Glucose (74-106) mg/dL Lactic Acid (0.4-2.0) mmol/L Calcium (8.5-10.1) mg/dL Total Bilirubin (0.2-1.0) mg/dL AST (15-37) U/L ALT (12-78) U/L Alkaline Phosphatase (46-116) U/L Troponin I High Sens (<=60.3) pg/mL C-Reactive Protein (0.0-0.3) mg/dL Total Protein (6.4-8.2) g/dL Albumin (3.4-5.0) g/dL Globulin (2.3-3.5) g/dL Albumin/Globulin Ratio (1.2-2.2) Influenza Type A RNA Negative (NEGATIVE) RSV RNA (INAAT) Negative (NEGATIVE) Influenza Type B RNA Negative (NEGATIVE) SARS-CoV-2 RNA (MITRA) Negative (NEGATIVE) 06/28/21 06/28/21 Range/Units 19:20 19:20 WBC (4.5-11.0) K/uL RBC (3.30-5.50) M/uL Hgb (12.0-15.0) g/dL Hct (36.0-48.0) % MCV (80-98) fL MCH (27-31) pg MCHC (32-36) % Plt Count (150-400) K/uL Neut % (Auto) (36-66) % Lymph % (Auto) (24-44) % [place] % (Auto) (2-6) % Eos % (Auto) (2-4) % Baso % (Auto) (0-1) % PT (9.2-10.6) sec INR APTT (21.4-31.8) sec Sodium 134 L (140-148) mmol/L Potassium 3.5 L (3.6-5.2) mmol/L Chloride 98 L (100-108) mmol/L Carbon Dioxide 25 (21-32) mmol/L Anion Gap 14.5 H (5.0-14.0) mmol/L BUN 11 (7-18) mg/dL Creatinine 0.8 (0.6-1.0) mg/dL Est Cr Clr Drug Dosing 50.08 mL/min Estimated GFR (MDRD) > 60 (>60) Glucose 93 (74-106) mg/dL Lactic Acid 1.2 (0.4-2.0) mmol/L Calcium 9.6 (8.5-10.1) mg/dL Total Bilirubin 0.5 (0.2-1.0) mg/dL AST 17 (15-37) U/L ALT 20 (12-78) U/L Alkaline Phosphatase 109 (46-116) U/L Troponin I High Sens 4.8 (<=60.3) pg/mL C-Reactive Protein 1.02 H (0.0-0.3) mg/dL Total Protein 7.0 (6.4-8.2) g/dL Albumin 3.9 (3.4-5.0) g/dL Globulin 3.1 (2.3-3.5) g/dL Albumin/Globulin Ratio 1.3 (1.2-2.2) Influenza Type A RNA (NEGATIVE) RSV RNA (INAAT) (NEGATIVE) Influenza Type B RNA (NEGATIVE) SARS-CoV-2 RNA (MITRA) (NEGATIVE) Meds: Medications Discontinued Medications Generic Name Dose Route Start Last Admin Trade Name Freq PRN Reason Stop Dose Admin Alprazolam 0.25 mg 06/28/21 20:04 Alprazolam 0.25 Mg Tab PO 06/28/21 20:05 NOW ONE - Re-Assessments/Exams Free Text/Narrative Re-Assessment/Exam: 06/28/21 20:06 the patient's EKG which is unremarkable for anything to suggest a cardiac issue. Her labs show a normal CBC with a leukocyte count of 5.5, hemoglobin of 11.9, and platelet count of 384,000. Her comprehensive metabolic panel is normal with a sodium of 134, potassium 3.5, chloride 98, bicarbonate 25, BUN of 11 with creatinine 0.8 and a glucose of 93. Her calcium, bilirubin, AST, ALT, alkaline phosphatase, albumin and globulin are all in normal limits. Her troponin I is normal at 4.8. Her PT/INR is 9.5 and 0.9 respectively. Her PTT is 34.1. Her lactic acid is 1.2 and her CRP is 1.02. All of these are negative for any significant abnormalities. I do think the majority of her symptoms are directly related to her poorly controlled anxiety. The patient is a supposed be taking alprazolam 0.25 mg 3 times a day for her anxiety but only takes it once a day which is inadequate. The patient was given alprazolam 0.25 mg here and reassured that her work-up is negative at this time for anything concerning her cardiopulmonary system. At this time she is suitable for discharge home with instructions to make sure she takes her alprazolam 3 times a day as prescribed. She is scheduled on Wednesday to undergo a stress test which I believe she should proceed with if for no other reason to give her peace of mind that there is no cardiac issue. Indications return to the ED were discussed and the patient was discharged in satisfactory condition. Departure - Departure Time of Disposition: :09 Disposition: Home, Self-Care 01 Clinical Impression: Generalized anxiety disorder, Aortic stenosis, moderate, SOB (shortness of breath) Instructions: Managing Anxiety, Adult Referrals: Mark Estrada MD [Primary Care Provider] - Forms: ED Department Discharge Care Plan Goals: Your work-up today has not demonstrated any evidence of cardiac involvement as a cause for your symptoms. Moreover, your blood work all is within normal limits which reduces the likelihood of this being due to serious bacterial infection., You are negative for Covid, influenza, and RSV as well. A majority of your symptoms can be linked directly back to anxiety which causes your body to release adrenaline making you more shaky, short of breath, feeling chest tightness due to increased acid production in the stomach and can cause tingling in the hands. I would strongly recommend you take your alprazolam 0.25 mg 3 times a day as prescribed as this will reduce your anxiety throughout the day. Continue to follow-up with your stress test on Wednesday. Activity as tolerated at home. Sepsis Event Note (ED) - Focused Exam Vital Signs: Vital Signs Temp Pulse Resp BP Pulse Ox 06/28/21 19:09 37.2 C 75 10 L 148/80 H 95 06/28/21 19:03 37.2 C 75 10 L 148/80 H 95 - Problem List & Annotations (1) Generalized anxiety disorder SNOMED Code(s): 05328631 Code(s): F41.1 - GENERALIZED ANXIETY DISORDER Status: Chronic Priority: High Current Visit: Yes (2) Aortic stenosis, moderate SNOMED Code(s): 051081994 Code(s): I35.0 - NONRHEUMATIC AORTIC (VALVE) STENOSIS Status: Chronic Priority: High Current Visit: Yes - Problem List Review Problem List Initiated/Reviewed/Updated: Yes - My Orders Last 24 Hours: My Active Orders 06/28/21 18:48 EKG 12 Lead [EK] Routine 06/28/21 19:06 Isolation [COMM] Stat - Assessment/Plan Last 24 Hours: My Active Orders 06/28/21 18:48 EKG 12 Lead [EK] Routine 06/28/21 19:06 Isolation [COMM] Stat
[2021-06-28] MEDS ORDERED: ALPRAZolam 0.25 MG Tab PO ONE (20:04)
[2021-06-28 20:11] LABS: CORONAVIRUS COVID-19 NAA NEGATIVE (NEGATIVE)
[2021-06-28 20:38] VITALS: BP 144/78; PULSE 77
== END 2021-06-28 22:15 | disposition home or self-care (01) ==
LOC: JP.ED 18:24
DX: F41.1 Generalized anxiety disorder (principal); I35.0 Nonrheumatic aortic (valve) stenosis; R06.02 Shortness of breath; Z88.5 Allergy status to narcotic agent; Z88.8 Allergy status to other drugs, medicaments and biological substances; Z91.048 Other nonmedicinal substance allergy status; Z79.82 Long term (current) use of aspirin; Z79.899 Other long term (current) drug therapy; Z20.822 Contact with and (suspected) exposure to COVID-19
CPT/HCPCS: 0241U; 36415; 80053; 83605; 84484; 85025; 85610; 85730; 86140; 93005; 99285; A9270

== ENCOUNTER 2021-08-07 08:25 | Day surgery (SDC) | payer MEDICARE ==
[~2021-08-07 08:25] MED LIST changes: -Lactated Ringers 1,000 ML IV SCH; -Nozin Nasal Sanitizer NASBOTH SCH
[2021-08-07] MEDS ORDERED: Dextrose 5%-Lactated Ringers 1,000 ML IV SCH (09:00)
[2021-08-07] MEDS ORDERED: Pantoprazole 40 MG Vial IVPUSH ONE (11:01)
[2021-08-07 11:55] VITALS: BP 125/63; PULSE 80
[2021-08-09 08:12] LABS: H. PYLORI BREATH TEST Negative (Negative)
== END 2021-08-07 12:20 | disposition home or self-care (01) ==
LOC: JP.SDS 08:25
PROVIDERS: ATTEND Surgery
DX: K29.60 Other gastritis without bleeding (principal); R13.13 Dysphagia, pharyngeal phase; K25.9 Gastric ulcer, unspecified as acute or chronic, without hemorrhage or perforation; E66.9 Obesity, unspecified
CPT/HCPCS: 43239; 83013; 87081; C9113; J2250; J2704; J3010; J7121

== ENCOUNTER 2023-06-25 10:52 | Emergency (ER) | payer MEDICARE ==
[2023-06-25] MEDS ORDERED: fentaNYL 100 MCG/2 ML SDV IM ONE (14:06)
[2023-06-25 14:20] VITALS: BP 143/81; PULSE 95
== END 2023-06-25 14:43 | disposition home or self-care (01) ==
LOC: JP.ED 10:52
DX: M54.42 Lumbago with sciatica, left side (principal); G89.29 Other chronic pain; E66.9 Obesity, unspecified; Z79.82 Long term (current) use of aspirin; Z79.899 Other long term (current) drug therapy; Z88.5 Allergy status to narcotic agent; Z88.6 Allergy status to analgesic agent; Z88.8 Allergy status to other drugs, medicaments and biological substances; Z91.048 Other nonmedicinal substance allergy status; Z68.37 Body mass index [BMI] 37.0-37.9, adult
CPT/HCPCS: 96372; 99283; J3010

== ENCOUNTER 2024-02-09 07:57 | Inpatient (IN) | payer MEDICARE ==
[~2024-02-09 07:57] MED LIST changes: +Bupivacaine 0.5% 50 ML MDV ONE; -Midazolam 1 MG/ML 2 ML SDV ONE; -Propofol 200 MG/20 ML SDV ONE; -fentaNYL 100 MCG/2 ML SDV ONE
[2024-02-09 08:34] LABS: HEMATOCRIT 37.2 % (34.3-46.0); HEMOGLOBIN 12.3 g/dL (11.2-15.5); MEAN CORPUSCULAR HEMOGLOBIN 31.9 pg (31.6-35.5); MEAN CORPUSCULAR HGB CONC 33.1 g/dL (31.6-35.5); MEAN CORPUSCULAR VOLUME 96.6 fL (81.4-99.0); RED BLOOD CELL COUNT 3.85 M/uL (3.77-5.24); WHITE BLOOD CELL COUNT,WBC 5.9 K/uL (3.2-11.0)
[2024-02-09 08:54] LABS: ALANINE AMINOTRANSFERASE,ALT 26 U/L (12-78); ALBUMIN 3.7 g/dL (3.4-5.0); ALKALINE PHOSPHATASE 108 U/L (46-116); ANION GAP 9.1 mmol/L (5.0-14.0); ASPARTATE AMNIOTRANSFERASE,AST 25 U/L (15-37); BILIRUBIN TOTAL 0.6 mg/dL (0.2-1.0); BLOOD UREA NITROGEN,BUN 15 mg/dL (7-18); CALCIUM 9.5 mg/dL (8.5-10.1); CARBON DIOXIDE,CO2 27 mmol/L (21-32); CHLORIDE,CL 105 mmol/L (100-108); CREATININE 0.9 mg/dL (0.6-1.0); EST CRCL DRUG DOSING (CG) 42.64 mL/min; ESTIMATED GFR 68 mL/min (>60); GLUCOSE RANDOM 97 mg/dL (74-106); POTASSIUM,K 4.2 mmol/L (3.6-5.2); PROTEIN TOTAL,TP 7.3 g/dL (6.4-8.2); SODIUM,NA 141 mmol/L (140-148)
[2024-02-09] MEDS: Nozin Nasal Sanitizer NASBOTH ONE (09:00)
[2024-02-09] MEDS: Lactated Ringers 1,000 ML IV SCH (09:46)
[2024-02-09] MEDS: ceFAZolin 2 GM in Premix Bag 1 BAG IV ONE (11:30)
[2024-02-09] MEDS ORDERED: Magnesium Hydroxide 400 MG/5 ML Susp 30 ML Cup PO PRN (11:34)
[2024-02-09] MEDS ORDERED: Ondansetron 4 MG/2 ML SDV IVPUSH PRN (11:34)
[2024-02-09] MEDS ORDERED: Docusate Sodium 100 MG Cap PO PRN (11:34)
[2024-02-09] MEDS ORDERED: fentaNYL 100 MCG/2 ML SDV ONE ×3 (11:35→13:51)
[2024-02-09] MEDS ORDERED: Midazolam 1 MG/ML 2 ML SDV ONE ×2 (11:35→12:16)
[2024-02-09] MEDS ORDERED: Propofol 200 MG/20 ML SDV ONE ×4 (11:35→13:31)
[2024-02-09] MEDS ORDERED: Non-Formulary Medication 1 Each (Carboxymethylcellulose Sodium [Refresh Tears] 15 ML Drops EYEBOTH PRN (11:36)
[2024-02-09] MEDS ORDERED: Non-Formulary Medication 1 Each (Triamcinolone Acetonide [Triamcinolone Acetonide 0.5%] 15 TOP PRN (11:37)
[2024-02-09] MEDS ORDERED: ceFAZolin 1 GM in Sodium Chloride 0.9% 50 ML IV SCH (11:45)
[2024-02-09] MEDS ORDERED: Hypromellose 0.3% Ophth Soln 15 ML Bottle EYEBOTH PRN (16:09)
[2024-02-09] MEDS: traMADol 50 MG Tab PO PRN (16:57)
[2024-02-09] MEDS: Acetaminophen 325 MG Tab PO SCH (16:57)
[2024-02-09] MEDS: Sodium Chloride 0.9% 1,000 ML IV SCH (19:32)
[2024-02-09] MEDS: Ketorolac 15 MG/ML SDV IVPUSH PRN (19:37)
[2024-02-09] MEDS ORDERED: Non-Formulary Medication 1 Each (Trazodone [Trazodone] 100 MG Tablet) PO SCH (21:00)
[2024-02-09] MEDS: Pregabalin 100 MG Cap PO SCH (21:09)
[2024-02-09] MEDS: ceFAZolin 1 GM in Premix Bag 1 BAG IV SCH (21:09)
[2024-02-09] MEDS: traZODone 50 MG Tab PO SCH (21:10)
[2024-02-09] MEDS: Montelukast 10 MG Tab PO SCH (21:10)
[2024-02-09] MEDS: Nozin Nasal Sanitizer NASBOTH SCH (21:13)
[2024-02-09] MEDS: hydrOXYzine HCl 25 MG Tab PO PRN (21:19)
[2024-02-10 05:25] LABS: HEMATOCRIT 28.5 % (34.3-46.0); HEMOGLOBIN 9.6 g/dL (11.2-15.5); MEAN CORPUSCULAR HEMOGLOBIN 32.2 pg (31.6-35.5); MEAN CORPUSCULAR HGB CONC 33.7 g/dL (31.6-35.5); MEAN CORPUSCULAR VOLUME 95.6 fL (81.4-99.0); RED BLOOD CELL COUNT 2.98 M/uL (3.77-5.24); WHITE BLOOD CELL COUNT,WBC 5.8 K/uL (3.2-11.0)
[2024-02-10] MEDS: Rosuvastatin 10 MG Tab PO SCH (08:46)
[2024-02-10] MEDS: Aspirin 325 MG Tab.EC PO SCH (08:46)
[2024-02-10] MEDS: Folic Acid 1 MG Tab PO SCH ×2 (08:47→21:04)
[2024-02-10] MEDS: guaiFENesin 600 MG Tab.ER PO SCH ×2 (08:47→21:04)
[2024-02-10] MEDS: Multivitamins with Iron/Calcium/Folic Acid/Minerals Tab PO SCH (08:47)
[2024-02-10] MEDS: Ascorbic Acid 500 MG Tab PO SCH (08:47)
[2024-02-10] MEDS: Sertraline 50 MG Tab PO SCH (08:47)
[2024-02-10] MEDS: metFORMIN 500 MG Tab PO SCH (08:48)
[2024-02-10] MEDS ORDERED: Non-Formulary Medication 1 Each (Pantoprazole [Pantoprazole] 20 MG Tab.Dr) PO SCH (09:00)
[2024-02-10] MEDS ORDERED: Non-Formulary Medication 1 Each (Multivitamin-Min/Iron/Fa/Vit K [Multi-Day Plus Minerals T PO SCH (09:00)
[2024-02-10] MEDS ORDERED: Non-Formulary Medication 1 Each (Ascorbic Acid [Vitamin C] 1,000 MG Tablet) PO SCH (09:00)
[2024-02-10] MEDS: Cholecalciferol (Vitamin D3) 25 MCG Tab PO SCH (09:40)
[2024-02-10] MEDS: Pantoprazole 40 MG Tab.CR PO SCH (11:32)
[2024-02-13] MEDS: Cholecalciferol (Vitamin D3) 50,000 Unit Cap PO SCH (08:11)
[2024-02-13] MEDS: Acetaminophen 325 MG Tab PO ONE (13:36)
[2024-02-13] MEDS: Acetaminophen 325 MG Tab PO SCH (20:34)
[2024-02-14 12:41] VITALS: BP 142/71; PULSE 83
== END 2024-02-14 12:50 | DRG 468 ==
LOC: JP.SDS 07:57 → JP.MS 11:34 → JP.SDS 02-10 10:00 → JP.MS 02-10 10:00
PROVIDERS: ADMIT Specialist; ATTEND Specialist
PROC: 0SUE09Z Supplement Left Hip Joint, Acetabular Surface with Liner, Open Approach (ICD-10-PCS; 2024-02-09)
PROC: 0SPB09Z Removal of Liner from Left Hip Joint, Open Approach (ICD-10-PCS; principal; 2024-02-09 11:38)
DX: T84.021A Dislocation of internal left hip prosthesis, initial encounter (principal); I25.10 Atherosclerotic heart disease of native coronary artery without angina pectoris; E11.9 Type 2 diabetes mellitus without complications; K21.9 Gastro-esophageal reflux disease without esophagitis
CPT/HCPCS: 01215-QZ; 36415; 72170; 72170-26; 80053; 85027; 87070; 87075; 87077; 87186; 87205; 93005; 93010; 97110-GP; 97161-GP; 97165-GO; 97530-GP; 97535-GO; A9270-GY; C1713; C1776; J0665; J0689; J0690; J1885; J2250; J2704; J3010; J7030; J7120